=== PATIENT | female | born 1945 | race Caucasian/White ===

== ENCOUNTER 2018-02-06 11:04 | Emergency (ER) | payer MEDICARE ==
[~2018-02-06] VITALS: Ht 160 cm; Wt 100.7 kg
--- OUTSIDE RECORDS SUMMARY | 2018-02-06 11:08 | XMS REPORT ---
Author Author FLOWER HUGO Organization [facility] Address [address] [place] [address] Care Team Providers Care Supervisor Grading Name Role Phone FLOWER HUGO Unavailable PROBLEMS Type Condition ICD9-CM Code [id number] Code Onset Dates Condition Status SNOMED Code Problem Type 2 diabetes mellitus with diabetic nephropathy E11.21 Active 554968110 Problem Diabetic polyneuropathy associated with type 2 diabetes mellitus E11.42 Active 17538388 Problem Bipolar disorder in full remission, most recent episode unspecified type F31.70 Active 60985502 Problem Schizoaffective disorder, bipolar type F25.0 Active 66480012 Problem End stage renal disease N18.6 Active 125158625 Problem Essential hypertension I10 Active 47250129 Problem Chronic obstructive pulmonary disease, unspecified COPD type J44.9 Active 88554812 Problem 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.2 Active 308785137 Problem watermaster current use of insulin Z79.4 Active 003275027 ALLERGIES No Information ENCOUNTERS Encounter Location Date Diagnosis [facility] [id number] [place] [address] Jan, [facility] [address] [place] [address] 08660- 9837 Jan, [facility] [id number] [place] [address]5849- 7290 Jan, [facility] [id number] [place] [address] 11338- 5057 Dec, [facility] [id number] [place] [address] 03905- 3316 Dec, [facility] [id number] [place] [address] 66717- 0107 Dec, [facility] [address] [place] [address] Dec, [facility] [address] [address] Dec, Schizoaffective disorder, bipolar type F25.0 [facility] [address] [address] Nov, [facility] [id number] [place] [address] 96669- 2516 Nov, [facility] [address] [place] [address] 78812- 9234 Nov, Schizoaffective disorder, bipolar type F25.0 [facility] [address] [address] Nov, [facility] [address] [place] [address] Nov, Type 2 diabetes mellitus with diabetic nephropathy E11.21 ; senior living current use of insulin Z79.4 ; Essential hypertension I10 ; Chronic obstructive pulmonary disease, unspecified COPD type J44.9 ; Bipolar disorder in full remission, most recent episode unspecified type F31.70 ; Diabetic polyneuropathy associated with type 2 diabetes mellitus E11.42 ; End stage renal disease N18.6 ; 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.2 and BMI 40.0-44.9, adult Z68.41 IMMUNIZATIONS No Known Immunizations SOCIAL HISTORY Never Assessed REASON FOR VISIT Refill request PLAN OF CARE VITAL SIGNS MEDICATIONS Medication Instructions Dosage Frequency Start Date End Date Duration Status Atorvastatin Calcium 40 mg Orally Once a day 1 tablet 24h 30 days Active RESULTS No Results PROCEDURES No Known procedures INSTRUCTIONS MEDICATIONS ADMINISTERED No Known Medications MEDICAL (GENERAL) HISTORY Type Description Date Medical History chronic renal failure Medical History type II diabetes Medical History chronic obstructive pulmonary disease (COPD) Medical History hypertension Medical History thyroid disorder Surgical History hysterectomy, total with bilateral salpingo-oophorectomy (BSO ) Surgical History tonsillectomy and adenoidectomy Surgical History appendectomy Surgical History cholecystectomy Hospitalization History pneumonia 09/07 Hospitalization History pneumonia 10/04 Hospitalization History multiple psychiatric inpatient treatments, most recent 2003
--- OUTSIDE RECORDS SUMMARY | 2018-02-06 11:09 | XMS REPORT ---
Author Author SERGEY ALBARRAN Organization [facility] Address [address] [place] [address] Care Team Providers Care Blueprinting Machine Operator Name Role Phone SERGEY ALBARRAN Unavailable PROBLEMS Type Condition ICD9-CM Code [id number] Code Onset Dates Condition Status SNOMED Code Problem Type 2 diabetes mellitus with diabetic nephropathy E11.21 Active 900092131 Problem Diabetic polyneuropathy associated with type 2 diabetes mellitus E11.42 Active 17587436 Problem Bipolar disorder in full remission, most recent episode unspecified type F31.70 Active 70480835 Problem Schizoaffective disorder, bipolar type F25.0 Active 60946208 Problem End stage renal disease N18.6 Active 409957708 Problem Essential hypertension I10 Active 83947303 Problem Chronic obstructive pulmonary disease, unspecified COPD type J44.9 Active 80661776 Problem 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.2 Active 293986166 Problem senior living current use of insulin Z79.4 Active 634848756 ALLERGIES No Information ENCOUNTERS Encounter Location Date Diagnosis [facility] [address] [address] Jan, [facility] [address] [address] Jan, [facility] [address] [place] [address] 42962- 7107 Jan, [facility] [address] [place] [address] 37448- 9216 Dec, [facility] [id number] [place] [address] 95131- 4618 Dec, [facility] [address] [place] [address] 02649- 5372 Dec, [facility] [id number] [address] 6[address] Dec, [facility] [address] [address] Dec, Schizoaffective disorder, bipolar type F25.0 [facility] [address] [address] 6[address] Nov, [facility] [id number] [address] 14[address] Nov, [facility] [address] [address] Nov, Schizoaffective disorder, bipolar type F25.0 [place] [address] Nov, [facility] [address] [address] Nov, Type 2 diabetes mellitus with diabetic [...] SOCIAL HISTORY Never Assessed REASON FOR VISIT intake PLAN OF CARE VITAL SIGNS MEDICATIONS Medication Instructions Dosage Frequency Start Date End Date Duration Status Metoprolol Tartrate 25 MG Orally Once a day 1 tablet with food 24h Active Magnesium Oxide 400 MG Orally Once a day 1 capsule as needed 24h Active Escitalopram Oxalate 20 MG Orally Once a day 0.5 tablet 24h Active Promethazine HCl 25 MG Orally every 8 hours, PRN 1 tablet as needed Active Calcitriol 0.5 MCG Orally Once a day 1 capsule 24h Active Renvela 800 MG Orally Three times a day 1 tablet with meals 8h Active Epogen 38462 UNIT/ML Injection every other week Active Hydrocodone-Acetaminophen 10-325 MG Orally every 8-12 hours, PRN 1 tablet as needed Nov, Active Gabapentin 300 MG Orally twice a day 1 capsule 12h Active Sodium Bicarbonate 650 MG Orally 2 times a day 12h Active B Complex - Active Amlodipine Besylate 10 MG Orally Once a day 1 tablet 24h Active Furosemide 40 mg Orally twice a day 1 tablet 12h Active Levothyroxine Sodium 125 MCG Orally Once a day 1 tablet on an empty stomach in the morning 24h Active Olanzapine 7.5 MG Orally Once a day 1 tablet 24h Active Bath/Shower Seat - as directed 13 Nov, 2017 Active Atorvastatin Calcium 40 MG Orally Once a day 1 tablet 24h Active Fish Oil 1000 MG Orally twice a day 2 capsule 12h Active RESULTS No Results PROCEDURES Procedure Date Ordered Result Body Site Psych diagnostic evaluation, established patient December 05, 2017 INSTRUCTIONS MEDICATIONS ADMINISTERED No Known Medications MEDICAL [...]
--- OUTSIDE RECORDS SUMMARY | 2018-02-06 11:09 | XMS REPORT ---
Author Author FLOWER HUGO Organization [facility] Address [address] [place] [address] Care Team Providers Care Hospice Home Care Coordinator Name Role Phone FLOWER HUGO Unavailable PROBLEMS Type Condition ICD9-CM Code [id number] Code Onset Dates Condition Status SNOMED Code Problem Type 2 diabetes mellitus with diabetic nephropathy E11.21 Active 769494383 Problem Diabetic polyneuropathy associated with type 2 diabetes mellitus E11.42 Active 12623501 Problem Bipolar disorder in full remission, most recent episode unspecified type F31.70 Active 23784134 Problem Schizoaffective disorder, bipolar type F25.0 Active 31742633 Problem End stage renal disease N18.6 Active 648389753 Problem Essential hypertension I10 Active 69212178 Problem Chronic obstructive pulmonary disease, unspecified COPD type J44.9 Active 69363404 Problem 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.2 Active 913007297 Problem watermaster current use of insulin Z79.4 Active 849690282 ALLERGIES No Information ENCOUNTERS Encounter Location Date Diagnosis [facility] [address] [place] [address]61- [address] Jan, [facility] [address] [place] [address] 08142- 5721 Jan, [facility] [id number] [place] [address] 50933- 4754 Dec, [facility] [id number] [place] [address] 69211- 3257 Dec, [facility] [id number] [place] [address] 09081- 3806 Dec, [facility] [id number] [place] [address] 87758- 4925 Dec, [facility] [address] [place] [address]- 47[address] Dec, Schizoaffective disorder, bipolar type F25.0 [facility] [id number] [address]- 4[address] Nov, [facility] [address] [place] [address]- [address] Nov, [facility] [address] [place] [address]- 98[address] Nov, Schizoaffective disorder, bipolar type F25.0 [facility] [address] [address] Nov, [facility] [address] [address]- 2774 Nov, Type 2 diabetes mellitus with diabetic nephropathy E11.21 ; residential current use of insulin Z79.4 ; Essential [...] SOCIAL HISTORY Never Assessed REASON FOR VISIT PLAN OF CARE VITAL SIGNS MEDICATIONS Medication Instructions Dosage Frequency Start Date End Date Duration Status Levothyroxine Sodium 125 mcg Orally Once a day 1 tablet on an empty stomach in the morning 24h Active RESULTS No Results PROCEDURES No Known [...]
--- OUTSIDE RECORDS SUMMARY | 2018-02-06 11:09 | XMS REPORT ---
Author Author FLOWER HUGO [facility] Address [address] [place] [address] Care Team Providers Care Mounter Sousaphones Name Role Phone FLOWER HUGO Unavailable PROBLEMS Type Condition ICD9-CM Code [id number] Code Onset Dates Condition Status SNOMED Code Problem Type 2 diabetes mellitus with diabetic nephropathy E11.21 Active 845887578 Problem Diabetic polyneuropathy associated with type 2 diabetes mellitus E11.42 Active 34779803 Problem Bipolar disorder in full remission, most recent episode unspecified type F31.70 Active 00680543 Problem Schizoaffective disorder, bipolar type F25.0 Active 56711323 Problem End stage renal disease N18.6 Active 243311797 Problem Essential hypertension I10 Active 67059045 Problem Chronic obstructive pulmonary disease, unspecified COPD type J44.9 Active 12787259 Problem 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.2 Active 593314468 Problem oil heaterman current use of insulin Z79.4 Active 704505318 ALLERGIES Substance Reaction Event Type Date Status [place] catatonic Drug Allergy Nov, Active Abilify diarrhea Drug Allergy Nov, Active ENCOUNTERS Encounter Location Date Diagnosis [facility] [id number] [address] Jan, [facility] [address] [address] 2537 Jan, [facility] [address] [address]- 1789 Jan, [facility] [address] [place] [address]35- 7206 Dec, [facility] [address] [address]- 8230 Dec, [facility] [id number] [place] [address] 10870- 9133 Dec, [facility] [address] [address]- 7881 Dec, [facility] [address] [address]- 9154 Dec, Schizoaffective disorder, bipolar type F25.0 [facility] [address] [address]- 6777 Nov, [facility] [address] [address]- 0397 Nov, [facility] [address] [address]- 6058 Nov, Schizoaffective disorder, bipolar type F25.0 [facility] [address] [address]- 18[address] Nov, [facility] [address] [address]- 2487 Nov, Type 2 diabetes mellitus with diabetic nephropathy E11.21 ; detention current use of insulin Z79.4 ; Essential [...] SOCIAL HISTORY Never Assessed REASON FOR VISIT Establish Care, recently moved from [place], dialysis, see ice sculptor, Dr. Gonzalez PLAN OF CARE Activity Details Follow Up 3 Months Reason: VITAL SIGNS Height 64 in 2017-12-02 Weight 236 lbs 2017-12-02 Temperature 98.1 degrees Fahrenheit 2017-12-02 Heart Rate 60 bpm 2017-12-02 Respiratory Rate 20 2017-12-02 BMI 40.50 kg/m2 2017-12-02 Blood pressure systolic 86 mmHg 2017-12-02 Blood pressure diastolic 52 mmHg 2017-12-02 MEDICATIONS Medication Instructions Dosage Frequency Start Date End Date Duration Status Epogen 86385 UNIT/ML Injection every other week Active Levothyroxine Sodium 125 MCG Orally Once a day 1 tablet on an empty stomach in the morning 24h Active Bath/Shower Seat - as directed Nov, Active Magnesium Oxide 400 MG Orally Once a day 1 capsule as needed 24h Active B Complex - Active Amlodipine Besylate 10 MG Orally Once a day 1 tablet 24h Active Escitalopram Oxalate 20 MG Orally Once a day 0.5 tablet 24h Active Metoprolol Tartrate 25 MG Orally Once a day 1 tablet with food 24h Active Olanzapine 7.5 MG Orally Once a day 1 tablet 24h Active Furosemide 40 mg Orally twice a day 1 tablet 12h Active Atorvastatin Calcium 40 MG Orally Once a day 1 tablet 24h Active Renvela 800 MG Orally Three times a day 1 tablet with meals 8h Active Calcitriol 0.5 MCG Orally Once a day 1 capsule 24h Active Hydrocodone-Acetaminophen 10-325 MG Orally every 8-12 hours, PRN 1 tablet as needed Nov, Active Sodium Bicarbonate 650 MG Orally 2 times a day 12h Active Fish Oil 1000 MG Orally twice a day 2 capsule 12h Active Promethazine HCl 25 MG Orally every 8 hours, PRN 1 tablet as needed Active Gabapentin 300 MG Orally twice a day 1 capsule 12h Active Adjust Bath/Shower Seat/Back - use while showering Nov, Active RESULTS No Results PROCEDURES No Known [...]
--- OUTSIDE RECORDS SUMMARY | 2018-02-06 11:09 | XMS REPORT ---
Author Author FLOWER HUGO Organization [facility] Address [address] [place] [address] Care Team Providers Care Grainer Machine Name Role Phone FLOWER HUGO Unavailable PROBLEMS Type Condition ICD9-CM Code [id number] Code Onset Dates Condition Status SNOMED Code Problem Type 2 diabetes mellitus with diabetic nephropathy E11.21 Active 502035485 Problem Diabetic polyneuropathy associated with type 2 diabetes mellitus E11.42 Active 71546251 Problem Bipolar disorder in full remission, most recent episode unspecified type F31.70 Active 15687968 Problem Schizoaffective disorder, bipolar type F25.0 Active 57439760 Problem End stage renal disease N18.6 Active 809442524 Problem Essential hypertension I10 Active 64742998 Problem Chronic obstructive pulmonary disease, unspecified COPD type J44.9 Active 32149495 Problem 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.2 Active 649409810 Problem buttermaker continuous churn current use of insulin Z79.4 Active 410948446 ALLERGIES No Information ENCOUNTERS Encounter Location Date Diagnosis [facility] [address] [place] [address]39[address]- 6749 Jan, [facility] [address] [place] [address] 90066- 4217 Jan, [facility] [id number] [place] [address] 55602- 3998 Dec, [facility] [id number] [place] [address] 40128- 7582 Dec, [facility] [id number] [place] [address] 97406- 8299 Dec, [facility] [id number] [place] [address] 72178- 5230 Dec, [facility] [address] [place] [address]- 65[address] Dec, Schizoaffective disorder, bipolar type F25.0 [facility] [id number] [address]- [address] Nov, [facility] [address] [address]- 85[address] Nov, [facility] [address] [address]- 47[address] Nov, Schizoaffective disorder, bipolar type F25.0 [facility] [address] [address]- 2734 Nov, [facility] [address] [address]- 5[address] Nov, Type 2 diabetes mellitus with diabetic nephropathy E11.21 ; nursing home current use of insulin Z79.4 ; Essential [...] request PLAN OF CARE VITAL SIGNS MEDICATIONS Unknown Medications RESULTS No Results PROCEDURES No Known procedures [...]
--- NOTE | 2018-02-06 12:16 | ED General ---
General Stated Complaint: TROUBLE STAYING AWAKE;SHAKING Source of Information: Patient Exam Limitations: No Limitations History of Present Illness Date Seen by Provider: Feb 06, 2018 Time Seen by Provider: 12:14 Initial Comments To ER with reports of 3-4 days of lethargy. She reports trouble staying awake and nodding off to sleep unintentionally. She is a peritoneal dialysis patient who follows with nephrology at [facility] [place] here in [place]. Primary care is Dr. Nobles. She was told earlier today that her calcium level was high at 12 and this was the suspected cause of her lethargy. She also states that she's had some "heartburn" described as pressure in the center of her chest (no history of coronary stenting) constant for the past 3-4 days and somewhat alleviated by taking comes. She was advised to quit taking Tums at her nephrology appointment this morning. She states that she does produce some urine but minimal. Timing/Duration: 3-4 Days Severity: Moderate Allergies and Home Medications Allergies Coded Allergies: lithium (Verified Allergy, Unknown, 02/06/18) Patient Home Medication List Home Medication List Reviewed: Yes Review of Systems Review of Systems Constitutional: see HPI EENTM: see HPI Respiratory: see HPI Genitourinary: no symptoms reported Musculoskeletal: no symptoms reported Skin: no symptoms reported Psychiatric/Neurological: See HPI, Weakness Hematologic/Lymphatic: No Symptoms Reported Immunological/Allergic: no symptoms reported Physical Exam Vital Signs Vital Signs - First Documented 02/06/18 12:07 Temp 98.0 Pulse 99 Resp 28 B/P (MAP) 111/58 (75) Pulse Ox 97 O2 Delivery Room Air Capillary Refill : Height, Weight, BMI Height: '" Weight: lbs. oz. kg; BMI Method: General Appearance: No Apparent Distress, WD/WN, Obese Eyes: Bilateral Eye Normal Inspection, Bilateral Eye PERRL, Bilateral Eye EOMI HEENT: PERRL/EOMI, TMs Normal Neck: Full Range of Motion, Normal Inspection Respiratory: No Accessory Muscle Use, No Respiratory Distress Cardiovascular: Regular Rate, Rhythm, Normal Peripheral Pulses Gastrointestinal: Normal Bowel Sounds, Non Tender, Soft Extremity: Normal Capillary Refill, Normal Inspection Neurologic/Psychiatric: Alert, Oriented x3, No Motor/Sensory Deficits Skin: Normal Color, Warm/Dry Progress/Results/Core Measures Suspected Sepsis SIRS Temperature: Pulse: Respiratory Rate: Laboratory Tests 02/06/18 12:10: White Blood Count 9.0 Blood Pressure / Mean: Laboratory Tests 02/06/18 12:10: Creatinine 13.54H, Platelet Count 220, Total Bilirubin 0.6 Results/Orders Lab Results My Orders Vital Signs/I&O Capillary Refill : Diagnostic Imaging Diagonstic Imaging: Xray Plain Films/CT/US/NM/MRI: chest Comments NAME: AARON FULLER [facility] REC#: [id number] PT STATUS: REG ER : 1945 PHYSICIAN: ALEXA DUMAS INFORMATICA MDM ARCHITECT ADMIT DATE: 02/06/18/ER Draft Date of Exam:02/06/18 CHEST 1 VIEW, AP/PA ONLY PATIENT HISTORY: Shortness of breath and difficulty staying awake. TECHNIQUE: Single frontal view of the chest. COMPARISON: None. FINDINGS: Lung volumes are normal. No focal consolidation is seen. There is no pleural effusion or pneumothorax. The cardiac silhouette is upper normal in size. There is mild central vascular congestion. Accessory azygos fissure is noted. IMPRESSION: Mild central vascular congestion with no focal consolidation seen. Dictated on workstation # [id number] Dict: 02/06/18 1305 Trans: 02/06/18 1308 [id number] Interpreted by: CHARLES WOODY MD Electronically signed by: Departure Communication (Admissions) Spoke with Dr. Jaswinder Gonzalez's nurse. She spoke with him about the labs. Does not feel that she needs admitted. I would agree with this, she is lethargic but she is arousable to verbal stimuli and able to carry on a conversation with me. She should stop vitamin D, no calcium products, push fluids and she will see him at the dialysis clinic on Tuesday 2 days from now. Impression Primary Impression: Lethargy Additional Impressions: Hypercalcemia Hypercalcemia associated with chronic dialysis Disposition: HOME, SELF-CARE Condition: Stable Departure-Patient Inst. Decision time for Depature: 14:09 Patient Instructions: Hypercalcemia (DC) Add. Discharge Instructions: 1. Return to ER for any concerns 2. Follow-up with Dr. Gonzalez on Tuesday of this week. Stop the vitamin D, no calcium products, drink plenty of fluids, more than usual and return to ER for any concerns. ALEXA DUMAS INFORMATICA MDM ARCHITECT Feb 06, 2018 12:16
[2018-02-06 12:32] LABS: BASOPHILS % (AUTO) 0 % (0-10); EOSINOPHILS # (AUTO) 0.4 10^3/uL (0.0-0.3); EOSINOPHILS % (AUTO) 4 % (0-10); HEMATOCRIT 30 % (35-52); HEMOGLOBIN 9.8 G/DL (11.5-16.0); LYMPHOCYTES # (AUTO) 2.2 X 10^3 (1.0-4.0); LYMPHOCYTES % (AUTO) 24 % (12-44); MEAN CORPUSCULAR HEMOGLOBIN 35 PG (25-34); MEAN CORPUSCULAR HGB CONC 33 G/DL (32-36); MEAN CORPUSCULAR VOLUME 107 FL (80-99); MEAN PLATELET VOLUME 8.7 FL (7.4-10.4); MONOCYTES # (AUTO) 0.7 X 10^3 (0.0-1.0); MONOCYTES % (AUTO) 8 % (0-12); NEUTROPHILS # (AUTO) 5.7 X 10^3 (1.8-7.8); NEUTROPHILS % (AUTO) 63 % (42-75); PLATELET COUNT 220 10^3/uL (130-400); RED BLOOD COUNT 2.77 10^6/uL (4.35-5.85); RED CELL DISTRIBUTION WIDTH 15.6 % (10.0-14.5)
[2018-02-06 12:53] LABS: ALANINE AMINOTRANSFERASE 18 U/L (0-55); ALBUMIN 3.4 GM/DL (3.2-4.5); ALKALINE PHOSPHATASE 56 U/L (40-136); BILIRUBIN,TOTAL 0.6 MG/DL (0.1-1.0); BUN/CREATININE RATIO 4; CALCIUM 12.1 MG/DL (8.5-10.1); CARBON DIOXIDE 30 MMOL/L (21-32); CHLORIDE 96 MMOL/L (98-107); CREATININE SERUM 13.54 MG/DL (0.60-1.30); GFR ESTIMATED 3; GLUCOSE 200 MG/DL (70-105); PHOSPHORUS 5.9 MG/DL (2.3-4.7); POTASSIUM 3.9 MMOL/L (3.6-5.0); SODIUM 141 MMOL/L (135-145)
[2018-02-06] MEDS ORDERED: NS IV 500 ML 500 ML IV SCH (13:00)
[2018-02-06] MEDS ORDERED: CALCITONIN 400 IUNITS/2 ML INJ (MIACALCIN) VIAL IM SCH (13:00)
--- NOTE | 2018-02-06 13:08 | Diagnostic Imaging Report ---
PATIENT HISTORY: Shortness of breath and difficulty staying awake. TECHNIQUE: Single frontal view of the chest. COMPARISON: None. FINDINGS: Lung volumes are normal. No focal consolidation is seen. There is no pleural effusion or pneumothorax. The cardiac silhouette is upper normal in size. There is mild central vascular congestion. Accessory azygos fissure is noted. IMPRESSION: Mild central vascular congestion with no focal consolidation seen. Dictated by: Dictated on workstation # [id number]
[2018-02-06 13:14] LABS: FREE T4 (FREE THYROXINE) 1.16 NG/DL (0.70-1.48)
[2018-02-06 14:20] VITALS: BP 119/59
== END 2018-02-06 14:20 | disposition home or self-care (01) ==
LOC: ER 11:05
DX: R53.83 Other fatigue (principal); E83.52 Hypercalcemia; N18.6 End stage renal disease; Z99.2 Dependence on renal dialysis; Z88.8 Allergy status to other drugs, medicaments and biological substances
CPT/HCPCS: 36415; 71045; 80053; 84100; 84439; 84443; 84484; 85025; 93005; 96360

== ENCOUNTER 2018-03-23 10:21 | Emergency (ER) | payer MEDICARE ==
[~2018-03-23] VITALS: Ht 162.6 cm; Wt 90.7 kg
--- OUTSIDE RECORDS SUMMARY | 2018-03-23 10:27 | XMS REPORT ---
Author Author MICHAEL OSBORN Organization [facility] Address [address] [place] [address] Care Team Providers Care Livestock Rancher Name Role Phone MICHAEL OSBORN Unavailable PROBLEMS Type Condition ICD9-CM Code [id number] Code Onset Dates Condition Status SNOMED Code Problem Bipolar disorder in full remission, most recent episode unspecified type F31.70 Active 90010935 Problem Chronic obstructive pulmonary disease, unspecified COPD type J44.9 Active 23764421 Problem Diabetic polyneuropathy associated with type 2 diabetes mellitus E11.42 Active 81598543 Problem Type 2 diabetes mellitus with diabetic nephropathy E11.21 Active 849627531 Problem 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.8X3 Active 562894628 Problem Schizoaffective disorder, bipolar type F25.0 Active 24137176 Problem senior care current use of insulin Z79.4 Active 655099268 Problem Essential hypertension I10 Active 14566319 Problem End stage renal disease N18.6 Active 879785800 Problem 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.2 Active 162060704 ALLERGIES No Information ENCOUNTERS Encounter Location Date Diagnosis [place] [id number] [place] [address] 39620- 7293 May, [facility] [id number] [place] [address] 71133- 7978 Feb, [facility] [id number] [place] [address] 04804- 3039 Jan, Schizoaffective disorder, bipolar type F25.0 [facility] [address] [place] [address] 61805- 9496 Jan, Type 2 diabetes mellitus with diabetic nephropathy E11.21 [facility] [address], [place] [address] 9[address] Jan, 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.8X3 [facility] [address] [place] [address] 47070- 9197 Jan, End stage renal disease N18.6 ; Chronic obstructive pulmonary disease, unspecified COPD type J44.9 ; 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.8X3 and Type 2 diabetes mellitus with diabetic nephropathy E11.21 [facility] [id number] [place] [address] 22649- 8022 17 Jan, 2018 [facility] [id number] [place] [address] 47673- 5703 Jan, [facility] [id number] [place] [address] 60395- 0090 Jan, [facility] [id number] [place] [address] 18041- 7532 Jan, [facility] [id number] [place] [address] 75101- 9376 Dec, [facility] [id number] [place] [address] 53190- 9849 Dec, [facility] [id number] [place] [address] 34213- 9156 Dec, [facility] [id number] [place] [address] 99357- 9026 Dec, [facility] [id number] [place] [address] 10721- 3988 Dec, Schizoaffective disorder, bipolar type F25.0 [facility] [address], [place] [address] 99[address] Nov, [facility] [id number] [place] [address] 84628- 1892 Nov, [facility] [address], [place] [address] 2235 Nov, Schizoaffective disorder, bipolar type F25.0 [facility] [address] [facility] [id number] [address] 0[address] Nov, [facility] [address] [facility] [id number] [address] 270[address] Nov, Type 2 diabetes mellitus with diabetic nephropathy E11.21 ; senior care current use of insulin Z79.4 ; Essential [...] SOCIAL HISTORY Never Assessed REASON FOR VISIT f/u PLAN OF CARE Activity Details Follow Up 4 Months Reason: VITAL SIGNS MEDICATIONS Medication Instructions Dosage Frequency Start Date End Date Duration Status Levothyroxine Sodium 125 mcg Orally Once a day 1 tablet on an empty stomach in the morning 24h Active Renvela 800 MG Orally Three times a day 3 tablet with meals 8h Feb, 30 days Active Gabapentin 300 MG Orally twice a day 1 capsule 12h 90 days Active Adjust Bath/Shower Seat/Back - use while showering Nov, Active Olanzapine 7.5 MG Orally at night 1 tablet 30 days Active Magnesium Oxide 400 MG Orally Once a day 1 capsule as needed 24h Active Escitalopram Oxalate 20 MG Orally Once a day 1 tablet 24h 30 days Active Furosemide 20 MG Orally twice a day 1 tablet 12h Active Sodium Bicarbonate 325 MG as directed Active Atorvastatin Calcium 40 mg Orally Once a day 1 tablet 24h 30 days Active Fish Oil 1000 MG Orally twice a day 2 capsule 12h Active B Complex - Active Hydrocodone-Acetaminophen 10-325 MG Orally every 8-12 hours, PRN 1 tablet as needed Nov, Active Bath/Shower Seat - as directed Nov, Active BD Ultra-Fine Micro Pen Needle 32G X 6 MM 1 24h Jan, Active Epogen 29041 UNIT/ML Injection every other week Active Promethazine HCl 25 MG Orally every 8 hours, PRN 1 tablet as needed Active RESULTS No Results PROCEDURES Procedure Date Ordered Result Body Site [facility] VISIT ESTABLISHED PATIENT Feb 16, 2018 INSTRUCTIONS MEDICATIONS ADMINISTERED No Known Medications MEDICAL [...]
--- OUTSIDE RECORDS SUMMARY | 2018-03-23 10:27 | XMS REPORT ---
Author Author FLOWER HUGO Organization [facility] Address [address] [place] [address] Care Team Providers Care Tank Builder Supervisor Name Role Phone FLOWER HUGO Unavailable PROBLEMS Type Condition ICD9-CM Code [id number] Code Onset Dates Condition Status SNOMED Code Problem Diabetic polyneuropathy associated with type 2 diabetes mellitus E11.42 Active 66062405 Problem Essential hypertension I10 Active 63377854 Problem Chronic obstructive pulmonary disease, unspecified COPD type J44.9 Active 40023658 Problem Bipolar disorder in full remission, most recent episode unspecified type F31.70 Active 10344783 Problem Type 2 diabetes mellitus with diabetic nephropathy E11.21 Active 267165743 Problem COPD with acute exacerbation J44.1 Active 870866589 Problem 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.8X3 Active 259842749 Problem 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.2 Active 149635090 Problem [facility] current use of insulin Z79.4 Active 039629910 Problem Schizoaffective disorder, bipolar type F25.0 Active 75303221 Problem End stage renal disease N18.6 Active 173886487 ALLERGIES No Information ENCOUNTERS Encounter Location Date Diagnosis [facility] [address], [place] [address] 78[address] May, [facility] [address] [place] [address] 63073- 8052 Feb, [facility] [address], [place] [address] Feb, Disseminated herpes zoster B02.7 [facility] [address] [place] [address] 38317- 3287 Feb, [facility] [address], [place] [address]- 0059 Feb, COPD with acute exacerbation J44.1 [facility] [address] [address]- 9590 Feb, [facility] [id number] [place] [address] 33477- 5726 Feb, [facility] [id number] [place] [address] 97880- 7080 Jan, Schizoaffective disorder, bipolar type F25.0 [facility] [id number] [place] [address] 17665- 4824 Jan, Type 2 diabetes mellitus with diabetic nephropathy E11.21 [facility] [id number] [place] [address] 60101- 7974 Jan, 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.8X3 [facility] [id number] [place] [address] 85575- 2139 Jan, End stage renal disease N18.6 ; Chronic obstructive pulmonary disease, unspecified COPD type J44.9 ; 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.8X3 and Type 2 diabetes mellitus with diabetic nephropathy E11.21 [facility] [id number] [place] [address] 35814- 1272 Jan, [facility] [address] [place] [address] 02783- 1005 Jan, [facility] [id number] [place] [address] 61903- 2396 Jan, [facility] [id number] [place] [address] 98638- 0894 Jan, [facility] [id number] [place] [address] 20097- 9881 Dec, [facility] [id number] [place] [address] 54176- 4912 Dec, [facility] [address] [place] [address] 44024- 6789 Dec, [facility] [id number], [place] [address]- 1687 Dec, [facility] [address] [address]- 9620 Dec, Schizoaffective disorder, bipolar type F25.0 [facility] [address], [place] [address] Nov, [facility] [address], [place] [address]- 3701 Nov, [facility] [address], [place] [address]- 1643 Nov, Schizoaffective disorder, bipolar type F25.0 [facility] [address], [place] [address]- 0938 Nov, [place] [address], [place] [address]- 2272 Nov, Type 2 diabetes mellitus with diabetic nephropathy E11.21 ; [facility] current use of insulin Z79.4 ; Essential [...] SOCIAL HISTORY Never Assessed REASON FOR VISIT oxygen orders PLAN OF CARE VITAL SIGNS MEDICATIONS Medication Instructions Dosage Frequency Start Date End Date Duration Status Oxygen 2 L/NC as directed Feb, Active RESULTS No Results PROCEDURES No Known [...]
--- OUTSIDE RECORDS SUMMARY | 2018-03-23 10:27 | XMS REPORT ---
Author Author ELIOT PATTERSON Organization [facility] Address [address] [place] [address] Care Team Providers Care Economics Professor Name Role Phone ELIOT PATTERSON Unavailable PROBLEMS Type Condition ICD9-CM Code [id number] Code Onset Dates Condition Status SNOMED Code Problem Diabetic polyneuropathy associated with type 2 diabetes mellitus E11.42 Active 65713789 Problem Essential hypertension I10 Active 55013207 Problem Chronic obstructive pulmonary disease, unspecified COPD type J44.9 Active 42011502 Problem Bipolar disorder in full remission, most recent episode unspecified type F31.70 Active 53771714 Problem Type 2 diabetes mellitus with diabetic nephropathy E11.21 Active 657684022 Problem COPD with acute exacerbation J44.1 Active 479792850 Problem 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.8X3 Active 342992297 Problem 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.2 Active 390787347 Problem 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.4 Active 260188334 Problem Schizoaffective disorder, bipolar type F25.0 Active 34697927 Problem End stage renal disease N18.6 Active 821066604 ALLERGIES Substance Reaction Event Type Date Status [place] catatonic Drug Allergy Feb, Active Abilify diarrhea Drug Allergy Feb, Active ENCOUNTERS Encounter Location Date Diagnosis [facility] [id number], [place] [address] 4071 May, [facility] [address], [place] [address]- 5180 Feb, [facility] [address], [place] [address] Feb, Disseminated herpes zoster B02.7 [facility] [address], [place] [address]- 5479 Feb, [facility] [id number] [place] [address] 90427- 4472 Feb, COPD with acute exacerbation J44.1 [facility] [id number] [place] [address] 21292- 2387 Feb, [facility] [id number] [place] [address] 02869- 5808 Feb, [facility] [id number] [place] [address] 75429- 1273 Jan, Schizoaffective disorder, bipolar type F25.0 [facility] [address] [place] [id number] [place] [address] 75419- 1965 Jan, Type 2 diabetes mellitus with diabetic nephropathy E11.21 [facility] [address] [id number] [place] [address] 47442- 3084 Jan, 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.8X3 [facility] [address] [place] [id number] [place] [address] 89269- 8829 Jan, End stage renal disease N18.6 ; Chronic obstructive pulmonary disease, unspecified COPD type J44.9 ; 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.8X3 and Type 2 diabetes mellitus with diabetic nephropathy E11.21 [facility] [address] [place] [address] 94111- 6100 17 Jan, 2018 [facility] [id number] [place] [address] 71121- 0243 Jan, [facility] [id number] [place] [address] 78487- 6837 Jan, [facility] [address] [id number] [place] [address] 17925- 2287 Jan, [facility] [address] [id number] [place] [address] 27601- 7183 Dec, [facility] [id number] [place] [address] 11647- 7019 Dec, [place] [address], [place] [address]- 1243 Dec, [facility] [address], [place] [address]- 6092 Dec, [facility] [address], [place] [address]- 0156 Dec, Schizoaffective disorder, bipolar type F25.0 [facility] [address], [place] [address]- 7918 Nov, [facility] [address], [place] [address]- 1388 Nov, [facility] [address], [place] [address]- 5640 Nov, Schizoaffective disorder, bipolar type F25.0 [place] [address], [place] [address]- 9028 Nov, [facility] [address], [place] [address]- 2826 Nov, Type 2 diabetes mellitus with diabetic nephropathy E11.21 ; [facility] current use of insulin Z79.4 ; Essential [...] SOCIAL HISTORY Never Assessed REASON FOR VISIT Blisters on neck Pt seen Miroslava Davis on was given prednisone and doxycylene. She started both meds on Tuesday, developed blisters on neck on Tuesday and stopped taking the medications yesterday (Tuesday) Pt reports rash does not itch, she describes it as burning and painful, with blisters DELMI Benjamin PLAN OF CARE Activity Details Follow Up prn Reason: VITAL SIGNS Height 64 in 2018-03-20 Weight 225.2 lbs 2018-03-20 Temperature 98.6 degrees Fahrenheit 2018-03-20 Heart Rate 78 bpm 2018-03-20 Respiratory Rate 18 2018-03-20 Oximetry on room air:93 % 2018-03-20 BMI 38.65 kg/m2 2018-03-20 Blood pressure systolic 124 mmHg 2018-03-20 Blood pressure diastolic 66 mmHg 2018-03-20 MEDICATIONS Medication Instructions Dosage Frequency Start Date End Date Duration Status Furosemide 80 MG Orally Once a day 1 tablet 24h Active Magnesium Oxide 400 MG Orally Once a day 1 capsule as needed 24h Active Levothyroxine Sodium 125 mcg Orally Once a day 1 tablet on an empty stomach in the morning 24h 30 Active Gabapentin 300 MG Orally twice a day 1 capsule 12h 90 days Active ProAir HFA 108 (90 Base) MCG/ACT Inhalation every 6 hrs 2 puffs as needed 6h Feb, 30 days Active Hydrocodone-Acetaminophen 10-325 MG Orally every 8-12 hours, PRN 1 tablet as needed Nov, Active BD Ultra-Fine Micro Pen Needle 32G X 6 MM 1 24h Jan, Active Escitalopram Oxalate 20 MG Orally Once a day 1 tablet 24h 30 days Active Fish Oil 1000 MG Orally twice a day 2 capsule 12h Active Lidocaine HCl 5 % Externally 2-3 times a day Topically Feb, 10 days Active PredniSONE 20 mg Orally Once a day 2 tablet 24h Feb, Feb, 5 days Not-Taking Acyclovir 800 MG Orally 5 times per day 1 tablet Feb, 10 day( s) Active Olanzapine 7.5 MG Orally at night 1 tablet 30 Active Sodium Bicarbonate 325 MG as directed Active Atorvastatin Calcium 40 mg Orally Once a day 1 tablet 24h 30 days Active Epogen 32738 UNIT/ML Injection every week Active Levemir Flexpen 100 UNIT/ML Subcutaneous at bedtime inject 32 units Feb, Active Adjust Bath/Shower Seat/Back - use while showering Nov, Active Bath/Shower Seat - as directed Nov, Active Renvela 800 MG Orally Three times a day 3 tablet with meals 8h 30 Active B Complex - Active Promethazine HCl 25 MG Orally every 8 hours, PRN 1 tablet as needed Active Doxycycline Hyclate 100 mg Orally twice a day 1 capsule 12h Feb, Mar, 10 day(s) Not-Taking Prilosec OTC 20 MG Orally Once a day 1 tablet 24h 30 day(s) Active RESULTS No Results PROCEDURES Procedure Date Ordered Result Body Site [facility] VISIT ESTABLISHED PATIENT Mar 20, 2018 INSTRUCTIONS MEDICATIONS ADMINISTERED No Known Medications [...]
--- OUTSIDE RECORDS SUMMARY | 2018-03-23 10:27 | XMS REPORT ---
Author Author FLOWER HUGO Organization [facility] Address [address] [place] [address] Care Team Providers Care Firer Electric Locomotive Name Role Phone FLOWER HUGO Unavailable PROBLEMS Type Condition ICD9-CM Code [id number] Code Onset Dates Condition Status SNOMED Code Problem Diabetic polyneuropathy associated with type 2 diabetes mellitus E11.42 Active 37994332 Problem Essential hypertension I10 Active 31298991 Problem Chronic obstructive pulmonary disease, unspecified COPD type J44.9 Active 47848812 Problem Bipolar disorder in full remission, most recent episode unspecified type F31.70 Active 61892949 Problem Type 2 diabetes mellitus with diabetic nephropathy E11.21 Active 493415145 Problem COPD with acute exacerbation J44.1 Active 611267542 Problem 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.8X3 Active 673182952 Problem 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.2 Active 034548069 Problem group home current use of insulin Z79.4 Active 200468938 Problem Schizoaffective disorder, bipolar type F25.0 Active 85369050 Problem End stage renal disease N18.6 Active 092120826 ALLERGIES No Information ENCOUNTERS Encounter Location Date Diagnosis [facility] [id number], [place] [address]- [address] May, [facility] [address] [place] [address] 05696- 6781 Feb, COPD with acute exacerbation J44.1 [facility] [address], [place] [address]- 9152 Feb, [facility] [id number] [place] [address] 04838- 7531 Feb, [facility] [address], [place] [address]- 8819 Jan, Schizoaffective disorder, bipolar type F25.0 [facility] [address] [place] [address] 60487- 7627 26 Jan, 2018 Type 2 diabetes mellitus with diabetic nephropathy E11.21 [facility] [id number] [place] [address] 02539- 2379 Jan, 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.8X3 [facility] [id number] [place] [address] 92347- 0884 Jan, End stage renal disease N18.6 ; Chronic obstructive pulmonary disease, unspecified COPD type J44.9 ; 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.8X3 and Type 2 diabetes mellitus with diabetic nephropathy E11.21 [facility] [id number] [place] [address] 11430- 3250 17 Jan, 2018 [facility] [id number] [place] [address] 57630- 3989 Jan, [facility] [id number] [place] [address] 80502- 4526 Jan, [facility] [id number] [place] [address] 56028- 9314 Jan, [facility] [id number] [place] [address] 36259- 5841 Dec, [facility] [id number] [place] [address] 66857- 7919 Dec, [facility] [id number] [place] [address] 76869- 1318 Dec, [facility] [id number] [place] [address] 23337- 9879 Dec, [facility] [id number] [place] [address] 14051- 7288 Dec, Schizoaffective disorder, bipolar type F25.0 [facility] [id number] [place] [address] 18276- 7449 Nov, [facility] [address] [facility] [id number] [address]- 5248 Nov, [facility] [address] [facility] [id number] [address]- 8150 Nov, Schizoaffective disorder, bipolar type F25.0 [facility] [address] [facility] [id number] [address]- 5066 Nov, [facility] [address] [facility] [id number] [address]- 9611 Nov, Type 2 diabetes mellitus with diabetic nephropathy E11.21 ; manager intermediate current use of insulin Z79.4 ; Essential [...] SOCIAL HISTORY Never Assessed REASON FOR VISIT Requests return call PLAN OF CARE VITAL SIGNS MEDICATIONS Medication Instructions Dosage Frequency Start Date End Date Duration Status Levemir Flexpen 100 UNIT/ML Subcutaneous at bedtime inject 32 units Feb, 30 days Active RESULTS No Results PROCEDURES [...]
--- OUTSIDE RECORDS SUMMARY | 2018-03-23 10:27 | XMS REPORT ---
Author Author ROBBY MOORE [facility] Address [address] [place] [address] Care Team Providers Care Ledge Man Name Role Phone ROBBY MOORE Unavailable PROBLEMS Type Condition ICD9-CM Code AXB37-EN Code Onset Dates Condition Status SNOMED Code Problem Diabetic polyneuropathy associated with type 2 diabetes mellitus E11.42 Active 92132252 Problem Essential hypertension I10 Active 88498333 Problem Chronic obstructive pulmonary disease, unspecified COPD type J44.9 Active 19647596 Problem Bipolar disorder in full remission, most recent episode unspecified type F31.70 Active 17811311 Problem Type 2 diabetes mellitus with diabetic nephropathy E11.21 Active 296746076 Problem COPD with acute exacerbation J44.1 Active 092541692 Problem 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.8X3 Active 328312610 Problem 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.2 Active 052428741 Problem retirement current use of insulin Z79.4 Active 575065162 Problem Schizoaffective disorder, bipolar type F25.0 Active 10165860 Problem End stage renal disease N18.6 Active 235930326 ALLERGIES Substance Reaction Event Type Date Status [place] Seminary catatonic Drug Allergy Feb, Active Abilify diarrhea Drug Allergy Feb, Active ENCOUNTERS Encounter Location Date Diagnosis [facility] [id number], [place] [address] May, [facility] [id number] [address] Feb, Disseminated herpes zoster B02.7 [facility] [id number], [place] [address] Feb, [facility] [id number], [place] [address] Feb, COPD with acute exacerbation J44.1 [facility] [address], [place] [address] Feb, [facility] [id number] [place] [address] 96058- 0582 Feb, [facility] [id number] [place] [address] 10889- 2825 Jan, Schizoaffective disorder, bipolar type F25.0 [facility] [id number] [place] [address] 92919- 3018 Jan, Type 2 diabetes mellitus with diabetic nephropathy E11.21 [facility] [id number] [place] [address] 20556- 4149 Jan, 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.8X3 [facility] [id number] [place] [address] 46120- 1196 Jan, End stage renal disease N18.6 ; Chronic obstructive pulmonary disease, unspecified COPD type J44.9 ; 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.8X3 and Type 2 diabetes mellitus with diabetic nephropathy E11.21 [facility] [id number] [place] [address] 08490- 8576 Jan, [facility] [address] [place] [address] 70121- 8251 Jan, [facility] [id number] [place] [address] 83339- 0748 Jan, [facility] [id number] [place] [address] 33033- 2608 Jan, [facility] [id number] [place] [address] 37724- 7434 Dec, [facility] [id number] [place] [address] 46160- 2906 Dec, [facility] [address] [place] [address] 45361- 9703 Dec, [facility] [id number] [address] 69[address] Dec, [facility] [address], [place] [address] Dec, Schizoaffective disorder, bipolar type F25.0 [facility] [address], [place] [address] 3[address] Nov, [facility] [address], [place] [address] 50[address] Nov, [facility] [address], [place] [address] 9[address] Nov, Schizoaffective disorder, bipolar type F25.0 [facility] [address], [place] [address] Nov, [place] [address], [place] [address] 53[address] Nov, Type 2 diabetes mellitus with diabetic nephropathy E11.21 ; 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.4 ; Essential [...] SOCIAL HISTORY Never Assessed REASON FOR VISIT Cold symptoms--tcuppettRN, Cough, nasal congestion, and shortness of breath x 3 days PLAN OF CARE Activity Details Follow Up if not improving or with pcp for regular fu Reason: VITAL SIGNS Height 64 in 2018-03-17 Weight 223.9 lbs 2018-03-17 Temperature 98.5 degrees Fahrenheit 2018-03-17 Heart Rate 84 bpm 2018-03-17 Respiratory Rate 20 2018-03-17 Oximetry 94 % 2018-03-17 BMI 38.43 kg/m2 2018-03-17 Blood pressure systolic 110 mmHg 2018-03-17 Blood pressure diastolic 64 mmHg 2018-03-17 MEDICATIONS Medication Instructions Dosage Frequency Start Date End Date Duration Status Adjust Bath/Shower Seat/Back - use while showering Nov, Active Promethazine HCl 25 MG Orally every 8 hours, PRN 1 tablet as needed Active Atorvastatin Calcium 40 mg Orally Once a day 1 tablet 24h 30 days Active Hydrocodone-Acetaminophen 10-325 MG Orally every 8-12 hours, PRN 1 tablet as needed Nov, Active PredniSONE 20 mg Orally Once a day 2 tablet 24h Feb, Feb, 5 days Active Bath/Shower Seat - as directed Nov, Active BD Ultra-Fine Micro Pen Needle 32G X 6 MM 1 24h Jan, Active Escitalopram Oxalate 20 MG Orally Once a day 1 tablet 24h 30 days Active Renvela 800 MG Orally Three times a day 3 tablet with meals 8h 30 Active Doxycycline Hyclate 100 mg Orally twice a day 1 capsule 12h Feb, Mar, 10 day(s) Active Levemir Flexpen 100 UNIT/ML Subcutaneous at bedtime inject 32 units Feb, Active Levothyroxine Sodium 125 mcg Orally Once a day 1 tablet on an empty stomach in the morning 24h 30 Active Sodium Bicarbonate 325 MG as directed Active Gabapentin 300 MG Orally twice a day 1 capsule 12h 90 days Active Fish Oil 1000 MG Orally twice a day 2 capsule 12h Active ProAir HFA 108 (90 Base) MCG/ACT Inhalation every 6 hrs 2 puffs as needed 6h Feb, 30 days Active Epogen 21798 UNIT/ML Injection every week Active Furosemide 80 MG Orally Once a day 1 tablet 24h Active Olanzapine 7.5 MG Orally at night 1 tablet 30 Active Magnesium Oxide 400 MG Orally Once a day 1 capsule as needed 24h Active B Complex - Active Prilosec OTC 20 MG Orally Once a day 1 tablet 24h 30 day(s) Active RESULTS No Results PROCEDURES Procedure Date Ordered Result Body Site [facility] VISIT ESTABLISHED PATIENT Mar 17, 2018 INSTRUCTIONS MEDICATIONS ADMINISTERED No Known Medications [...]
--- OUTSIDE RECORDS SUMMARY | 2018-03-23 10:27 | XMS REPORT ---
Author Author FLOWER HUGO Organization [facility] Address [address] [place] [address] Care Team Providers Care Soil Specialist Name Role Phone FLOWER HUGO Unavailable PROBLEMS Type Condition ICD9-CM Code OEG41-LZ Code Onset Dates Condition Status SNOMED Code Problem Diabetic polyneuropathy associated with type 2 diabetes mellitus E11.42 Active 76717628 Problem Essential hypertension I10 Active 75979055 Problem Chronic obstructive pulmonary disease, unspecified COPD type J44.9 Active 23814605 Problem Bipolar disorder in full remission, most recent episode unspecified type F31.70 Active 18488024 Problem Type 2 diabetes mellitus with diabetic nephropathy E11.21 Active 996141392 Problem COPD with acute exacerbation J44.1 Active 110458303 Problem 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.8X3 Active 903894904 Problem 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.2 Active 599548476 Problem senior living current use of insulin Z79.4 Active 186556210 Problem Schizoaffective disorder, bipolar type F25.0 Active 60870823 Problem End stage renal disease N18.6 Active 796118580 ALLERGIES No Information ENCOUNTERS Encounter Location Date Diagnosis [facility] [address], [place] [address] May, [facility] [address] [place] [address]45 [address]682 Feb, Disseminated herpes zoster B02.7 [facility] [address] [place] [address] 55906- 8174 Feb, [facility] [id number] [place] [address] 59477- 0898 Feb, COPD with acute exacerbation J44.1 [facility] [address], [place] [address] 99[address] Feb, [facility] [address], [place] [address] 3[address] Feb, [facility] [id number] [place] [address] 76174- 7684 Jan, Schizoaffective disorder, bipolar type F25.0 [facility] [id number] [place] [address] 01927- 0544 Jan, Type 2 diabetes mellitus with diabetic nephropathy E11.21 [facility] [id number] [place] [address] 12586- 3951 Jan, 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.8X3 [facility] [id number] [place] [address] 63500- 8717 Jan, End stage renal disease N18.6 ; Chronic obstructive pulmonary disease, unspecified COPD type J44.9 ; 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.8X3 and Type 2 diabetes mellitus with diabetic nephropathy E11.21 [facility] [address] [place] [address] 29729- 4835 Jan, [facility] [id number] [place] [address] 01974- 8614 Jan, [facility] [address] [place] [address] 11197- 2463 Jan, [facility] [id number] [place] [address] 48876- 2055 Jan, [facility] [address], [place] [address]- 1046 Dec, [facility] [id number] [place] [address] 88083- 8547 Dec, [facility] [address], [place] [address]- 3863 Dec, [facility] [address] [place] [address] 06559- 4332 Dec, [facility] [id number], [place] [address]- 8427 Dec, Schizoaffective disorder, bipolar type F25.0 [facility] [id number], [place] [address]- 5933 Nov, [facility] [id number], [place] [address]- 2790 Nov, [facility] [address], [place] [address]- 3204 Nov, Schizoaffective disorder, bipolar type F25.0 [facility] [id number], [place] [address]- 6356 Nov, [facility] [id number], [place] [address]- 4431 Nov, Type 2 diabetes mellitus with diabetic [...] SOCIAL HISTORY Never Assessed REASON FOR VISIT med question PLAN OF CARE VITAL SIGNS MEDICATIONS Unknown [...]
--- OUTSIDE RECORDS SUMMARY | 2018-03-23 10:28 | XMS REPORT ---
Author Author FLOWER HUGO [facility] Address [address] [place] [address] Care Team Providers Care Propeller Inspector Name Role Phone FLOWER HUGO Unavailable PROBLEMS Type Condition ICD9-CM Code SZK57-HU Code Onset Dates Condition Status SNOMED Code Problem Bipolar disorder in full remission, most recent episode unspecified type F31.70 Active 69507861 Problem Chronic obstructive pulmonary disease, unspecified COPD type J44.9 Active 75750835 Problem Diabetic polyneuropathy associated with type 2 diabetes mellitus E11.42 Active 98413490 Problem Type 2 diabetes mellitus with diabetic nephropathy E11.21 Active 760999242 Problem 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.8X3 Active 983757031 Problem Schizoaffective disorder, bipolar type F25.0 Active 58723328 Problem termite treater helper current use of insulin Z79.4 Active 417617682 Problem Essential hypertension I10 Active 78369618 Problem End stage renal disease N18.6 Active 375577123 Problem 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.2 Active 279710230 ALLERGIES No Information ENCOUNTERS Encounter Location Date Diagnosis [place] [address], [place] [address] May, [facility] [id number] [place] [address] 72565- 4487 Feb, [facility] [id number] [place] [address] 18408- 4258 Jan, Schizoaffective disorder, bipolar type F25.0 [facility] [address] [place] [address] 55968- 9169 Jan, Type 2 diabetes mellitus with diabetic nephropathy E11.21 [facility] [address], [place] [address]- 7157 Jan, 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.8X3 [facility] [address], [place] [address]- 1869 Jan, End stage renal disease N18.6 ; Chronic obstructive pulmonary disease, unspecified COPD type J44.9 ; 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.8X3 and Type 2 diabetes mellitus with diabetic nephropathy E11.21 [facility] [id number] [place] [address] 27375- 1234 17 Jan, 2018 [facility] [id number] [place] [address] 81173- 3981 Jan, [facility] [id number] [place] [address] 08127- 2463 Jan, [facility] [id number] [place] [address] 59100- 8829 Jan, [facility] [id number] [place] [address] 19288- 1259 Dec, [facility] [id number] [place] [address] 58542- 6474 Dec, [facility] [id number] [place] [address] 82983- 7087 Dec, [facility] [address], [place] [address]- 2946 Dec, [facility] [address], [place] [address]- 5977 Dec, Schizoaffective disorder, bipolar type F25.0 [facility] [address], [place] [address]- 9814 Nov, [facility] [id number] [place] [address] 51489- 9427 Nov, [facility] [address], [place] [address]- 0892 Nov, Schizoaffective disorder, bipolar type F25.0 [facility] [id number] [address]- 7947 Nov, [facility] [place] [address] [facility] [id number] [place] [address]- 2893 Nov, Type 2 diabetes mellitus with diabetic nephropathy E11.21 ; snf current use of insulin Z79.4 ; Essential [...] SOCIAL HISTORY Never Assessed REASON FOR VISIT overnight spo2 PLAN OF CARE VITAL SIGNS MEDICATIONS Unknown [...]
--- OUTSIDE RECORDS SUMMARY | 2018-03-23 10:28 | XMS REPORT ---
Author Author FLOWER HUGO [facility] Address [address] [place] [address] Care Team Providers Care Glaciologist Name Role Phone FLOWER HUGO Unavailable PROBLEMS Type Condition ICD9-CM Code EEF97-WD Code Onset Dates Condition Status SNOMED Code Problem Bipolar disorder in full remission, most recent episode unspecified type F31.70 Active 13040192 Problem Chronic obstructive pulmonary disease, unspecified COPD type J44.9 Active 15287800 Problem Diabetic polyneuropathy associated with type 2 diabetes mellitus E11.42 Active 16490517 Problem Type 2 diabetes mellitus with diabetic nephropathy E11.21 Active 613600332 Problem 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.8X3 Active 767361862 Problem Schizoaffective disorder, bipolar type F25.0 Active 22888692 Problem long term care pharmacist current use of insulin Z79.4 Active 326557975 Problem Essential hypertension I10 Active 76791905 Problem End stage renal disease N18.6 Active 239878203 Problem 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.2 Active 776519892 ALLERGIES No Information ENCOUNTERS Encounter Location Date Diagnosis [place] [address], [place] [address] May, [facility] [id number] [place] [address] 55106- 9640 Feb, [facility] [id number] [place] [address] 24004- 6712 Jan, Schizoaffective disorder, bipolar type F25.0 [facility] [address] [place] [address] 07247- 6978 Jan, Type 2 diabetes mellitus with diabetic nephropathy E11.21 [facility] [address], [place] [address]- 1833 Jan, 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.8X3 [facility] [address], [place] [address]- 1504 Jan, End stage renal disease N18.6 ; Chronic obstructive pulmonary disease, unspecified COPD type J44.9 ; 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.8X3 and Type 2 diabetes mellitus with diabetic nephropathy E11.21 [facility] [id number] [place] [address] 97010- 2735 17 Jan, 2018 [facility] [id number] [place] [address] 94559- 8996 Jan, [facility] [id number] [place] [address] 05007- 1826 Jan, [facility] [id number] [place] [address] 05047- 8223 Jan, [facility] [id number] [place] [address] 02095- 4950 Dec, [facility] [id number] [place] [address] 21818- 6844 Dec, [facility] [id number] [place] [address] 02001- 9796 Dec, [facility] [address], [place] [address]- 6750 Dec, [facility] [address], [place] [address]- 3949 Dec, Schizoaffective disorder, bipolar type F25.0 [facility] [address], [place] [address]- 5801 Nov, [facility] [id number] [place] [address] 12479- 9268 Nov, [facility] [address], [place] [address]- 5776 Nov, Schizoaffective disorder, bipolar type F25.0 [facility] [id number] [address]- 7953 Nov, [facility] [address] [facility] [id number] [place] [address]- 5654 Nov, Type 2 diabetes mellitus with diabetic [...] SOCIAL HISTORY Never Assessed REASON FOR VISIT triage PLAN OF CARE VITAL SIGNS MEDICATIONS Unknown [...]
--- OUTSIDE RECORDS SUMMARY | 2018-03-23 10:28 | XMS REPORT ---
Author Author FLOWER HUGO Organization [facility] Address [address] [place] [address] Care Team Providers Care Analysis Evaluator Name Role Phone FLOWER HUGO Unavailable PROBLEMS Type Condition ICD9-CM Code ZCM40-LR Code Onset Dates Condition Status SNOMED Code Problem Bipolar disorder in full remission, most recent episode unspecified type F31.70 Active 65547793 Problem Chronic obstructive pulmonary disease, unspecified COPD type J44.9 Active 25836747 Problem Diabetic polyneuropathy associated with type 2 diabetes mellitus E11.42 Active 64025209 Problem Type 2 diabetes mellitus with diabetic nephropathy E11.21 Active 684983481 Problem 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.8X3 Active 865768995 Problem Schizoaffective disorder, bipolar type F25.0 Active 58426693 Problem intermediate teacher current use of insulin Z79.4 Active 571032808 Problem Essential hypertension I10 Active 09033415 Problem End stage renal disease N18.6 Active 068932465 Problem 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.2 Active 181079058 ALLERGIES No Information ENCOUNTERS Encounter Location Date Diagnosis [place] [id number] [place] [address] 15499- 3818 May, [facility] [id number] [place] [address] 81041- 0606 Jan, Schizoaffective disorder, bipolar type F25.0 [facility] [address] [place] [address] 41189- 0031 Jan, Type 2 diabetes mellitus with diabetic nephropathy E11.21 [facility] [id number] [place] [address] 27430- 1419 Jan, 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.8X3 [place] [address] [place] [address] 25103- 5110 Jan, End stage renal disease N18.6 ; Chronic obstructive pulmonary disease, unspecified COPD type J44.9 ; 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.8X3 and Type 2 diabetes mellitus with diabetic nephropathy E11.21 [facility] [address] [place] [address]- 1386 17 Jan, 2018 [facility] [id number] [place] [address] 92869- 1724 Jan, [facility] [id number] [place] [address], [place] [address]- 9367 Jan, [facility] [id number] [place] [address], [place] [address]- 7620 Jan, [facility] [id number] [place] [address], [place] [address]- 8981 Dec, [facility] [id number] [place] [address] 36666- 6694 Dec, [facility] [address] [address]- 6032 Dec, [facility] [id number] [place] [address] 02878- 6575 Dec, [facility] [address] [address]- 8889 Dec, Schizoaffective disorder, bipolar type F25.0 [facility] [address] [address]- 1916 Nov, [facility] [id number] [address]- 3632 Nov, [facility] [address] [address]- 1158 Nov, Schizoaffective disorder, bipolar type F25.0 [facility] [address] [address]- 4395 Nov, [facility] [id number] [address]- 9891 13 Nov, 2017 Type 2 diabetes mellitus with diabetic nephropathy E11.21 ; half-way current use of insulin Z79.4 ; Essential [...] SOCIAL HISTORY Never Assessed REASON FOR VISIT diabetic supplies PLAN OF CARE VITAL SIGNS MEDICATIONS Unknown [...]
--- OUTSIDE RECORDS SUMMARY | 2018-03-23 10:28 | XMS REPORT ---
Author Author MICHAEL OSBORN Organization [facility] Address [address] [place] [address] Care Team Providers Care Parts Counter Salesperson Name Role Phone MICHAEL OSBORN Unavailable PROBLEMS Type Condition ICD9-CM Code CWR00-YR Code Onset Dates Condition Status SNOMED Code Problem Bipolar disorder in full remission, most recent episode unspecified type F31.70 Active 91304767 Problem Chronic obstructive pulmonary disease, unspecified COPD type J44.9 Active 32261695 Problem Diabetic polyneuropathy associated with type 2 diabetes mellitus E11.42 Active 56334583 Problem Type 2 diabetes mellitus with diabetic nephropathy E11.21 Active 571119349 Problem 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.8X3 Active 489246818 Problem Schizoaffective disorder, bipolar type F25.0 Active 30320614 Problem shelter current use of insulin Z79.4 Active 122149265 Problem Essential hypertension I10 Active 89133323 Problem End stage renal disease N18.6 Active 473363668 Problem 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.2 Active 998504656 ALLERGIES Substance Reaction Event Type Date Status Rippey catatonic Drug Allergy Dec, Active Abilify diarrhea Drug Allergy Dec, Active ENCOUNTERS Encounter Location Date Diagnosis [facility] [id number] [address] Jan, [facility] [id number] [address] Jan, [facility] [id number] [place] [address] Jan, End stage renal disease N18.6 ; Chronic obstructive pulmonary disease, unspecified COPD type J44.9 ; 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.8X3 and Type 2 diabetes mellitus with diabetic nephropathy E11.21 [facility] [id number] [address] 17 Jan, 2018 [facility] [address] [address] Jan, [facility] [address] [address] Jan, [facility] [id number] [address] Jan, [facility] [id number] [place] [address]- 4637 Dec, [facility] [address] [place] [address]- 9459 Dec, [facility] [id number], [place] [address] Dec, [facility] [address] [place] [address]- 9715 Dec, [facility] [address] [address] Dec, Schizoaffective disorder, bipolar type F25.0 [facility] [address] [address] Nov, [facility] [address] [address] 0[address] Nov, [facility] [address] [address] Nov, Schizoaffective disorder, bipolar type F25.0 [facility] [address] [address] Nov, [facility] [address] [address] Nov, Type 2 diabetes mellitus with diabetic nephropathy E11.21 ; shelter current use of insulin Z79.4 ; Essential [...] SOCIAL HISTORY Never Assessed REASON FOR VISIT BH intake. Noe JANG PLAN OF CARE Activity Details Follow Up 6 Weeks Reason: VITAL SIGNS Height 64 in 2018-01-05 Weight 225 lbs 2018-01-05 Respiratory Rate 20 2018-01-05 BMI 38.62 kg/m2 2018-01-05 Blood pressure systolic 98 mmHg 2018-01-05 Blood pressure diastolic 60 mmHg 2018-01-05 MEDICATIONS Medication Instructions Dosage Frequency Start Date End Date Duration Status Calcitriol 0.5 MCG Orally Once a day 1 capsule 24h Active Furosemide 20 MG Orally twice a day 1 tablet 12h Active B Complex - Active Gabapentin 300 MG Orally twice a day 1 capsule 12h Active Hydrocodone-Acetaminophen 10-325 MG Orally every 8-12 hours, PRN 1 tablet as needed Nov, Active Levothyroxine Sodium 125 mcg Orally Once a day 1 tablet on an empty stomach in the morning 24h Active Atorvastatin Calcium 40 mg Orally Once a day 1 tablet 24h 30 days Active Bath/Shower Seat - as directed Nov, Active Epogen 32315 UNIT/ML Injection every other week Active Fish Oil 1000 MG Orally twice a day 2 capsule 12h Active Adjust Bath/Shower Seat/Back - use while showering Nov, Active Magnesium Oxide 400 MG Orally Once a day 1 capsule as needed 24h Active Renvela 800 MG Orally Three times a day 1 tablet with meals 8h Active Escitalopram Oxalate 20 MG Orally Once a day 1 tablet 24h 30 days Active Promethazine HCl 25 MG Orally every 8 hours, PRN 1 tablet as needed Active Olanzapine 7.5 MG Orally at night 1 tablet 30 days Active RESULTS No Results PROCEDURES Procedure Date Ordered Result Body Site [facility] VISIT ESTABLISHED PATIENT Jan 05, 2018 INSTRUCTIONS MEDICATIONS ADMINISTERED No Known Medications [...]
--- OUTSIDE RECORDS SUMMARY | 2018-03-23 10:28 | XMS REPORT ---
Author Author FLOWER HUGO [facility] Address [address] [place] [address] Care Team Providers Care Counseling Center Manager Name Role Phone FLOWER HUGO Unavailable PROBLEMS Type Condition ICD9-CM Code TFG30-OO Code Onset Dates Condition Status SNOMED Code Problem Bipolar disorder in full remission, most recent episode unspecified type F31.70 Active 32424117 Problem Chronic obstructive pulmonary disease, unspecified COPD type J44.9 Active 12771558 Problem Diabetic polyneuropathy associated with type 2 diabetes mellitus E11.42 Active 27045959 Problem Type 2 diabetes mellitus with diabetic nephropathy E11.21 Active 203913830 Problem 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.8X3 Active 339626517 Problem Schizoaffective disorder, bipolar type F25.0 Active 34787241 Problem rn long term care current use of insulin Z79.4 Active 112893537 Problem Essential hypertension I10 Active 00856983 Problem End stage renal disease N18.6 Active 930567479 Problem 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.2 Active 761057274 ALLERGIES No Information ENCOUNTERS Encounter Location Date Diagnosis [address], [place] [address] Jan, [facility] [address], [place] [address] Jan, [facility] [address], [place] [address] Jan, End stage renal disease N18.6 ; Chronic obstructive pulmonary disease, unspecified COPD type J44.9 ; 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.8X3 and Type 2 diabetes mellitus with diabetic nephropathy E11.21 [facility] [address], [place] [address]- [address] Jan, [facility] [id number] [address] Jan, [facility] [address], [place] [address]- 6[address] Jan, [facility] [address], [place] [address]- 70[address] Jan, [facility] [address], [place] [address]- [address]60 Dec, [facility] [address], [place] [address]- 8877 Dec, [facility] [address], [place] [address]- 39[address] Dec, [facility] [address], [place] [address]- [address] Dec, [facility] [address], [place] [address]- [address] Dec, Schizoaffective disorder, bipolar type F25.0 [facility] [address], [place] [address]- 6[address] Nov, [facility] [address], [place] [address]- [address] Nov, [facility] [address], [place] [address]- [address] Nov, Schizoaffective disorder, bipolar type F25.0 [facility] [address], [place] [address]- [address] Nov, [facility] [id number], [place] [address] Nov, Type 2 diabetes mellitus with diabetic [...] SOCIAL HISTORY Never Assessed REASON FOR VISIT Medication refill request PLAN OF CARE VITAL SIGNS MEDICATIONS Medication Instructions Dosage Frequency Start Date End Date Duration Status Renvela 800 MG Orally Three times a day 3 tablet with meals 8h Feb, 30 days Active RESULTS No Results [...]
--- OUTSIDE RECORDS SUMMARY | 2018-03-23 10:28 | XMS REPORT ---
Author Author FLOWER HUGO [facility] Address [address] [place] [address] Care Team Providers Care Pharmacogeneticist Name Role Phone FLOWER HUGO Unavailable PROBLEMS Type Condition ICD9-CM Code QDS51-KB Code Onset Dates Condition Status SNOMED Code Problem Bipolar disorder in full remission, most recent episode unspecified type F31.70 Active 67917943 Problem Chronic obstructive pulmonary disease, unspecified COPD type J44.9 Active 37779500 Problem Diabetic polyneuropathy associated with type 2 diabetes mellitus E11.42 Active 73137330 Problem Type 2 diabetes mellitus with diabetic nephropathy E11.21 Active 430787864 Problem 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.8X3 Active 774504112 Problem Schizoaffective disorder, bipolar type F25.0 Active 40725210 Problem terminal system operator current use of insulin Z79.4 Active 588896032 Problem Essential hypertension I10 Active 84349040 Problem End stage renal disease N18.6 Active 877929147 Problem 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.2 Active 880874826 ALLERGIES No Information ENCOUNTERS Encounter Location Date Diagnosis [address], [place] [address] Jan, [facility] [address], [place] [address]- 134[address] Jan, [facility] [address], [place] [address]- [address] Jan, End stage renal disease N18.6 ; Chronic obstructive pulmonary disease, unspecified COPD type J44.9 ; 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.8X3 and Type 2 diabetes mellitus with diabetic nephropathy E11.21 [facility] [address], [place] [address]- [address] Jan, [facility] [id number], [place] [address]- 95[address] Jan, [facility] [address], [place] [address]- 1623 Jan, [facility] [id number], [place] [address]- 8466 Jan, [facility] [id number], [place] [address]- 4247 Dec, [facility] [id number], [place] [address]- 5337 Dec, [facility] [id number], [place] [address]- 66[address] Dec, [facility] [address], [place] [address]- 8152 Dec, [facility] [address], [place] [address]- 43[address] Dec, Schizoaffective disorder, bipolar type F25.0 [facility] [address], [place] [address]- 8997 Nov, [facility] [address], [place] [address]- 6660 Nov, [facility] [address], [place] [address]- 5180 Nov, Schizoaffective disorder, bipolar type F25.0 [facility] [address], [place] [address]- 8057 Nov, [facility] [id number], [place] [address]- 6[address] Nov, Type 2 diabetes mellitus with diabetic nephropathy E11.21 ; [facility] current use of insulin Z79.4 ; Essential [...] HISTORY Never Assessed REASON FOR VISIT Medication question PLAN OF CARE VITAL SIGNS MEDICATIONS Medication Instructions Dosage Frequency Start Date End Date Duration Status Renvela 800 MG Orally Three times a day 1 tablet with meals 8h Mar, 30 days Active RESULTS No Results PROCEDURES [...]
--- OUTSIDE RECORDS SUMMARY | 2018-03-23 10:28 | XMS REPORT ---
Author Author FLOWER HUGO [facility] Address [address] [place] [address] Care Team Providers Care Cylinder Steamer Name Role Phone FLOWER HUGO Unavailable PROBLEMS Type Condition ICD9-CM Code DTZ48-IT Code Onset Dates Condition Status SNOMED Code Problem Bipolar disorder in full remission, most recent episode unspecified type F31.70 Active 36986927 Problem Chronic obstructive pulmonary disease, unspecified COPD type J44.9 Active 92068612 Problem Diabetic polyneuropathy associated with type 2 diabetes mellitus E11.42 Active 00658995 Problem Type 2 diabetes mellitus with diabetic nephropathy E11.21 Active 722807634 Problem 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.8X3 Active 055117378 Problem Schizoaffective disorder, bipolar type F25.0 Active 59276091 Problem 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 [id number] [place] [address]- [address]148 Feb, [facility] [id number] [place] [address]- 5340 Jan, Schizoaffective disorder, bipolar type F25.0 [facility] [address] [place] [address] 90878- 9333 Jan, Type 2 diabetes mellitus with diabetic nephropathy E11.21 [facility] [address] [address]- 9101 Jan, 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.8X3 [facility] [address] [address]- 3[address] Jan, End stage renal disease N18.6 ; Chronic obstructive pulmonary disease, unspecified COPD type J44.9 ; 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.8X3 and Type 2 diabetes mellitus with diabetic nephropathy E11.21 [facility] [id number] [place] [address]02- 0542 17 Jan, [address] [facility] [id number] [place] [address]796- 5246 Jan, [facility] [id number] [place] [address] 81346- [address] Jan, [facility] [id number] [place] [address]881- [address] Jan, [facility] [id number] [place] [address]87- 8987 Dec, [facility] [id number] [place] [address] 91062- [address] Dec, [facility] [id number] [place] [address] 95157- 3308 Dec, [facility] [address] [address]- 0361 Dec, [facility] [address] [address]- 5880 Dec, Schizoaffective disorder, bipolar type F25.0 [facility] [address] [address]- [address]18 Nov, [facility] [id number] [place] [address]77- 4360 Nov, [facility] [address] [address]- 9383 Nov, Schizoaffective disorder, bipolar type F25.0 [facility] [id number] [address]- 8549 Nov, [facility] [address] [facility] [id number] [place] [address]- 7003 Nov, Type 2 diabetes mellitus with diabetic [...] SOCIAL HISTORY Never Assessed REASON FOR VISIT Pen needles PLAN OF CARE VITAL SIGNS MEDICATIONS Medication Instructions Dosage Frequency Start Date End Date Duration Status BD Ultra-Fine Micro Pen Needle 32G X 6 MM 1 24h 25 Jan, 2018 Active RESULTS No Results PROCEDURES No Known [...]
--- OUTSIDE RECORDS SUMMARY | 2018-03-23 10:28 | XMS REPORT ---
Author Author FLOWER HUGO Organization [facility] Address [address] [place] [address] Care Team Providers Care Fire Prevention Research Engineer Name Role Phone FLOWER HUGO Unavailable PROBLEMS Type Condition ICD9-CM Code KTR83-JS Code Onset Dates Condition Status SNOMED Code Problem Bipolar disorder in full remission, most recent episode unspecified type F31.70 Active 28224596 Problem Chronic obstructive pulmonary disease, unspecified COPD type J44.9 Active 14662611 Problem Diabetic polyneuropathy associated with type 2 diabetes mellitus E11.42 Active 60772962 Problem Type 2 diabetes mellitus with diabetic nephropathy E11.21 Active 525691159 Problem 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.8X3 Active 605694094 Problem Schizoaffective disorder, bipolar type F25.0 Active 55198895 Problem 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.4 Active 134004145 Problem Essential hypertension I10 Active 99243323 Problem End stage renal disease N18.6 Active 089844304 Problem 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.2 Active 888419663 ALLERGIES No Information ENCOUNTERS Encounter Location Date Diagnosis [id number] [place] [address]34- 5312 May, [facility] [id number] [place] [address] 41153- 5454 Jan, Schizoaffective disorder, bipolar type F25.0 [facility] [address] [place] [address] 36543- 8499 Jan, Type 2 diabetes mellitus with diabetic nephropathy E11.21 [facility] [id number] [place] [address] 87581- 2877 Jan, 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.8X3 [id number] [place] [address] 77382- 3756 Jan, End stage renal disease N18.6 ; Chronic obstructive pulmonary disease, unspecified COPD type J44.9 ; 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.8X3 and Type 2 diabetes mellitus with diabetic nephropathy E11.21 [facility] [address] [place] [address]- 1141 17 Jan, 2018 [facility] [id number] [place] [address] 40744- 5696 Jan, [facility] [id number] [place] [address], [place] [address]- 4323 Jan, [facility] [id number] [place] [address], [place] [address]- 4253 Jan, [facility] [id number] [place] [address], [place] [address]- 7956 Dec, [facility] [id number] [place] [address] 85227- 2802 Dec, [facility] [address] [address]- 0105 Dec, [facility] [id number] [place] [address] 01332- 0033 Dec, [facility] [address] [address]- 5303 Dec, Schizoaffective disorder, bipolar type F25.0 [facility] [address] [address]- 2579 Nov, [facility] [id number] [address]- 6810 Nov, [facility] [id number] [address]- 0086 Nov, Schizoaffective disorder, bipolar type F25.0 [facility] [address] [address]- 1179 Nov, [facility] [id number] [address]- 3[address] 13 Nov, 2017 Type 2 diabetes mellitus [...]
--- OUTSIDE RECORDS SUMMARY | 2018-03-23 10:28 | XMS REPORT ---
Author Author FLOWER HUGO Organization [facility] Address [address] [place] [address] Care Team Providers Care Vp Production Name Role Phone FLOWER HUGO Unavailable PROBLEMS Type Condition ICD9-CM Code YMV08-XR Code Onset Dates Condition Status SNOMED Code Problem Bipolar disorder in full remission, most recent episode unspecified type F31.70 Active 82287539 Problem Chronic obstructive pulmonary disease, unspecified COPD type J44.9 Active 65136731 Problem Diabetic polyneuropathy associated with type 2 diabetes mellitus E11.42 Active 76534698 Problem Type 2 diabetes mellitus with diabetic nephropathy E11.21 Active 114436803 Problem 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.8X3 Active 392664464 Problem Schizoaffective disorder, bipolar type F25.0 Active 21831583 Problem 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.4 Active 429191115 Problem Essential hypertension I10 Active 82852342 Problem End stage renal disease N18.6 Active 373827218 Problem 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.2 Active 519509774 ALLERGIES No Information ENCOUNTERS Encounter Location Date Diagnosis [id number] [place] [address] 90393- 0171 May, [facility] [id number] [place] [address] 61774- 7608 Jan, Schizoaffective disorder, bipolar type F25.0 [facility] [address] [place] [address] 87427- 4103 Jan, Type 2 diabetes mellitus with diabetic nephropathy E11.21 [facility] [id number] [place] [address] 07405- 6340 Jan, 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.8X3 [place] [place] [id number] [place] [address] 90865- 2175 Jan, End stage renal disease N18.6 ; Chronic obstructive pulmonary disease, unspecified COPD type J44.9 ; 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.8X3 and Type 2 diabetes mellitus with diabetic nephropathy E11.21 [facility] [address] [address]- 6[address] 17 Jan, 2018 [facility] [id number] [place] [address] 78546- 4004 Jan, [facility] [id number] [place] [address], [place] [address]- 6315 Jan, [facility] [id number] [place] [address], [place] [address]- 1803 Jan, [facility] [id number] [place] [address], [place] [address]- 0233 Dec, [facility] [id number] [place] [address] 12111- 6854 Dec, [facility] [address] [address]- 0875 Dec, [facility] [id number] [place] [address] 15174- 5164 Dec, [facility] [address] [address]- 5067 Dec, Schizoaffective disorder, bipolar type F25.0 [facility] [id number] [address]- 2035 Nov, [facility] [id number] [address]- 8268 Nov, [facility] [id number] [address]- 8087 Nov, Schizoaffective disorder, bipolar type F25.0 [facility] [address] [address]- 4789 Nov, [facility] [id number] [address]- 7123 13 Nov, 2017 Type 2 diabetes mellitus [...]
--- OUTSIDE RECORDS SUMMARY | 2018-03-23 10:28 | XMS REPORT ---
Author Author FLOWER HUGO [facility] Address [address] [place] [address] Care Team Providers Care Edge Trimming Machine Operator Name Role Phone FLOWER HUGO Unavailable PROBLEMS ALLERGIES No Information ENCOUNTERS IMMUNIZATIONS No Known Immunizations SOCIAL HISTORY No smoking Hx information available REASON FOR VISIT PLAN OF CARE VITAL SIGNS MEDICATIONS RESULTS No Results PROCEDURES No Known procedures INSTRUCTIONS MEDICATIONS ADMINISTERED No Known Medications MEDICAL (GENERAL) HISTORY
--- OUTSIDE RECORDS SUMMARY | 2018-03-23 10:29 | XMS REPORT ---
Author Author FLOWER HUGO [facility] Address [address] [place] [address] Care Team Providers Care Projection Engineer Name Role Phone FLOWER HUGO Unavailable PROBLEMS Type Condition ICD9-CM Code [id number] Code Onset Dates Condition Status SNOMED Code Problem Bipolar disorder in full remission, most recent episode unspecified type F31.70 Active 03214195 Problem Chronic obstructive pulmonary disease, unspecified COPD type J44.9 Active 05773870 Problem Diabetic polyneuropathy associated with type 2 diabetes mellitus E11.42 Active 42236880 Problem Type 2 diabetes mellitus with diabetic nephropathy E11.21 Active 430096742 Problem 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.8X3 Active 789990596 Problem Schizoaffective disorder, bipolar type F25.0 Active 86743127 Problem 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.4 Active 107981022 Problem Essential hypertension I10 Active 94465889 Problem End stage renal disease N18.6 Active 763742731 Problem 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.2 Active 193551130 ALLERGIES No Information ENCOUNTERS Encounter Location Date Diagnosis [place] [address], [place] [address] Jan, [facility] [address], [place] [address] Jan, [facility] [address], [place] [address] Jan, End stage renal disease N18.6 ; Chronic obstructive pulmonary disease, unspecified COPD type J44.9 ; 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.8X3 and Type 2 diabetes mellitus with diabetic nephropathy E11.21 [facility] [address], [place] [address] Jan, [facility] [address], [place] [address] Jan, [facility] [address], [place] [address] Jan, [facility] [address], [place] [address] Jan, [facility] [address], [place] [address] Dec, [facility] [address], [place] [address] Dec, [facility] [address], [place] [address] Dec, [facility] [address], [place] [address] Dec, [facility] [address], [place] [address] Dec, Schizoaffective disorder, bipolar type F25.0 [facility] [address], [place] [address] Nov, [facility] [address], [place] [address] Nov, [facility] [address], [place] [address] Nov, Schizoaffective disorder, bipolar type F25.0 [facility] [address], [place] [address] Nov, [facility] [id number], [place] [address] Nov, Type 2 diabetes mellitus with diabetic nephropathy E11.21 ; [facility] current use of insulin Z79.4 ; Essential [...] SOCIAL HISTORY Never Assessed REASON FOR VISIT referral PLAN OF CARE VITAL SIGNS MEDICATIONS Unknown [...]
--- OUTSIDE RECORDS SUMMARY | 2018-03-23 10:29 | XMS REPORT ---
Author Author FLOWER UHGO Organization [facility] Address [address] [place] [address] Care Team Providers Care Non Destructive Evaluation Technician Name Role Phone FLOWER HUGO Unavailable PROBLEMS Type Condition ICD9-CM Code [id number] Code Onset Dates Condition Status SNOMED Code Problem Type 2 diabetes mellitus with diabetic nephropathy E11.21 Active 994233633 Problem Diabetic polyneuropathy associated with type 2 diabetes mellitus E11.42 Active 91095549 Problem Bipolar disorder in full remission, most recent episode unspecified type F31.70 Active 03940950 Problem Schizoaffective disorder, bipolar type F25.0 Active 63109021 Problem End stage renal disease N18.6 Active 334172935 Problem Essential hypertension I10 Active 82888082 Problem Chronic obstructive pulmonary disease, unspecified COPD type J44.9 Active 06204373 Problem 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.2 Active 502950286 Problem oil heaterman current use of insulin Z79.4 Active 615804898 ALLERGIES No Information ENCOUNTERS Encounter Location Date Diagnosis [facility] [address] [place] [address] Jan, [facility] [address] [place] [address] Jan, [facility] [address] [place] [address] Jan, [facility] [id number] [place] [address] Jan, [facility] [id number] [place] [address] Jan, [facility] [id number] [place] [address] Jan, [facility] [address] [address] Dec, [facility] [address] [address] Dec, [facility] [address] [address] Dec, [facility] [address] [place] [address] Dec, [facility] [id number] [place] [address] Dec, Schizoaffective disorder, bipolar type F25.0 [facility] [address] [place] [address] Nov, [facility] [id number] [place] [address] Nov, [facility] [id number] [place] [address] Nov, Schizoaffective disorder, bipolar type F25.0 [facility] [address] [place] [address] Nov, [facility] [address] [address] Nov, Type 2 diabetes mellitus with diabetic nephropathy E11.21 ; oil heaterman current use of insulin Z79.4 ; Essential [...] Frequency Start Date End Date Duration Status Gabapentin 300 MG Orally twice a day 1 capsule 12h 90 days Active RESULTS No Results PROCEDURES No [...]
[2018-03-23 11:05] LABS: BASOPHILS % (AUTO) 1 % (0-10); EOSINOPHILS # (AUTO) 0.3 10^3/uL (0.0-0.3); EOSINOPHILS % (AUTO) 3 % (0-10); HEMATOCRIT 33 % (35-52); HEMOGLOBIN 10.8 G/DL (11.5-16.0); LYMPHOCYTES # (AUTO) 1.6 X 10^3 (1.0-4.0); LYMPHOCYTES % (AUTO) 18 % (12-44); MEAN CORPUSCULAR HEMOGLOBIN 34 PG (25-34); MEAN CORPUSCULAR HGB CONC 33 G/DL (32-36); MEAN CORPUSCULAR VOLUME 104 FL (80-99); MEAN PLATELET VOLUME 8.9 FL (7.4-10.4); MONOCYTES # (AUTO) 0.7 X 10^3 (0.0-1.0); MONOCYTES % (AUTO) 8 % (0-12); NEUTROPHILS # (AUTO) 6.1 X 10^3 (1.8-7.8); NEUTROPHILS % (AUTO) 70 % (42-75); PLATELET COUNT 209 10^3/uL (130-400); RED BLOOD COUNT 3.15 10^6/uL (4.35-5.85); RED CELL DISTRIBUTION WIDTH 14.7 % (10.0-14.5); WHITE BLOOD COUNT 8.6 10^3/uL (4.3-11.0)
--- NOTE | 2018-03-23 11:14 | ED General ---
General Chief Complaint: Altered Mental Status Stated Complaint: CONFUSION Source of Information: Patient, Caregiver, Family Exam Limitations: No Limitations History of Present Illness Date Seen by Provider: Mar 23, 2018 Time Seen by Provider: 11:03 Initial Comments The patient is a 72-year-old white female brought to the emergency room by her daughter because of somnolence and confusion. She was diagnosed as having shingles on 02/15 and placed on acyclovir. She told her daughter that she felt confused almost from the beginning. She is now somnolent and confused. The daughter relates that she is on peritoneal dialysis and also has previously had hypercalcemia. Timing/Duration: 5-6 Days Allergies and Home Medications Allergies Coded Allergies: lithium (Verified Allergy, Unknown, 02/06/18) Patient Home Medication List Home Medication List Reviewed: Yes Review of Systems Review of Systems Constitutional: see HPI EENTM: no symptoms reported Respiratory: no symptoms reported Cardiovascular: no symptoms reported Gastrointestinal: no symptoms reported Genitourinary: other (peritoneal dialysis) Musculoskeletal: no symptoms reported Skin: other (vesicular eruption right posterior neck and shoulder and extending anteriorly over the clavicle.) Psychiatric/Neurological: Depressed Hematologic/Lymphatic: No Symptoms Reported Immunological/Allergic: no symptoms reported Past Lronolm-Knyrvl-Mvlcdn Hx Patient Social History Type Used: Cigarettes Recent Hopitalizations: No Immunizations Up To Date Tetanus Booster (TDap): Unknown PED Vaccines UTD: Yes Seasonal Allergies Seasonal Allergies: No Past Medical History Surgeries: Yes Appendectomy, Gallbladder, Hysterectomy, Tonsillectomy Respiratory: Yes Neurological: No Genitourinary: Yes Renal Failure Gastrointestinal: No Musculoskeletal: No Endocrine: No HEENT: No Cancer: No Psychosocial: No Integumentary: No Blood Disorders: No Physical Exam Vital Signs Vital Signs - First Documented 03/23/18 11:02 Temp 96.9 Pulse 78 Resp 20 B/P (MAP) 135/65 (88) Pulse Ox 93 Capillary Refill : Height, Weight, BMI Height: 5'3.00" Weight: 222lbs. oz. 100.861785tt; BMI Method:Stated General Appearance: Other (lethargic) Eyes: Bilateral Eye Normal Inspection HEENT: Normal ENT Inspection Neck: Other (vesicular eruption beginning at right posterior cervical area and migrating across the trapezius, the clavicle and to the upper right chest. It does not cross the midline.) Respiratory: Chest Non Tender, Lungs Clear, Normal Breath Sounds, No Accessory Muscle Use, No Respiratory Distress Cardiovascular: Regular Rate, Rhythm, No Edema, No Gallop, No JVD, No Murmur, Normal Peripheral Pulses Gastrointestinal: Normal Bowel Sounds, Other (abdomen is obese and spongy to palpation) Back: Normal Inspection Extremity: Normal Capillary Refill, Normal Inspection, Normal Range of Motion, Non Tender, No Calf Tenderness, No Pedal Edema Neurologic/Psychiatric: Alert, Oriented x3, No Motor/Sensory Deficits, Normal Mood/Affect Skin: Normal Color, Warm/Dry Lymphatic: No Adenopathy Focused Exam Lactate Level 03/23/18 10:47: Lactic Acid Level 2.51*H Lactic Acid Level Laboratory Tests Test 03/23/18 10:47 Lactic Acid Level 2.51 MMOL/L (0.50-2.00) *H Progress/Results/Core Measures Suspected Sepsis SIRS Temperature: Pulse: Respiratory Rate: Laboratory Tests 03/23/18 10:47: White Blood Count 8.6 Blood Pressure / Mean: 03/23/18 10:47: Lactic Acid Level 2.51*H Laboratory Tests 03/23/18 10:47: Creatinine 12.07H, Platelet Count 209, Total Bilirubin 0.7 Results/Orders Lab Results Laboratory Tests Test 03/23/18 10:39 03/23/18 10:47 Range/Units Glucometer 200 H 70-110 MG/DL White Blood Count 8.6 4.3-11.0 10^3/uL Red Blood Count 3.15 L 4.35-5.85 10^6/uL Hemoglobin 10.8 L 11.5-16.0 G/DL Hematocrit 33 L 35-52 % Mean Corpuscular Volume 104 H 80-99 FL Mean Corpuscular Hemoglobin 34 25-34 PG Mean Corpuscular Hemoglobin Concent 33 32-36 G/DL Red Cell Distribution Width 14.7 H 10.0-14.5 % Platelet Count 209 130-400 10^3/uL Mean Platelet Volume 8.9 7.4-10.4 FL Neutrophils (%) (Auto) 70 42-75 % Lymphocytes (%) (Auto) 18 12-44 % Monocytes (%) (Auto) 8 0-12 % Eosinophils (%) (Auto) 3 0-10 % Basophils (%) (Auto) 1 0-10 % Neutrophils # (Auto) 6.1 1.8-7.8 X 10^3 Lymphocytes # (Auto) 1.6 1.0-4.0 X 10^3 Monocytes # (Auto) 0.7 0.0-1.0 X 10^3 Eosinophils # (Auto) 0.3 0.0-0.3 10^3/uL Basophils # (Auto) 0.0 0.0-0.1 10^3/uL Sodium Level 141 135-145 MMOL/L Potassium Level 3.5 L 3.6-5.0 MMOL/L Chloride Level 99 98-107 MMOL/L Carbon Dioxide Level 26 21-32 MMOL/L Anion Gap 16 H 5-14 MMOL/L Blood Urea Nitrogen 81 H 7-18 MG/DL Creatinine 12.07 H 0.60-1.30 MG/DL Estimat Glomerular Filtration Rate 3 BUN/Creatinine Ratio 7 Glucose Level 190 H 70-105 MG/DL Lactic Acid Level 2.51 *H 0.50-2.00 MMOL/L Calcium Level 8.9 8.5-10.1 MG/DL Corrected Calcium 9.3 8.5-10.1 MG/DL Total Bilirubin 0.7 0.1-1.0 MG/DL Aspartate Amino Transf (AST/SGOT) 14 5-34 U/L Alanine Aminotransferase (ALT/SGPT) 20 0-55 U/L Alkaline Phosphatase 65 40-136 U/L Total Protein 6.3 L 6.4-8.2 GM/DL Albumin 3.5 3.2-4.5 GM/DL My Orders Orders - JERRY DEWEY MD Cbc With Automated Diff (03/23/18 10:56) Comprehensive Metabolic Panel (03/23/18 10:56) Blood Culture (03/23/18 10:56) Lactic Acid Analyzer (03/23/18 10:56) Vital Signs/I&O 03/23/18 11:02 Temp 96.9 Pulse 78 Resp 20 B/P (MAP) 135/65 (88) Pulse Ox 93 Capillary Refill : Departure Communication (Admissions) There is anatomy atlas was consulted for dermatomes and the vesicular findings are consistent with a C5 dermatome. 1145 discussed the case with Dr. Hugo. He would think that DCing the acyclovir and observing would be a reasonable course of action Impression Primary Impression: herpes zoster right C5 dermatome Additional Impression: reaction to acyclovir Disposition: HOME, SELF-CARE Condition: Stable/Unchanged Departure-Patient Inst. Decision time for Depature: 11:54 Referrals: FLOWER HUGO MD (PCP/Family) Primary Care Physician Add. Discharge Instructions: All discharge instructions reviewed with patient and/or family. Voiced understanding. Stop acyclovir. 2.encourage good fluid intake. 3.call [facility] tomorrow for further instructions. JERRY DEWEY MD Mar 23, 2018 11:14
[2018-03-23 11:26] LABS: ALBUMIN 3.5 GM/DL (3.2-4.5); BILIRUBIN,TOTAL 0.7 MG/DL (0.1-1.0); CALCIUM 8.9 MG/DL (8.5-10.1); CREATININE SERUM 12.07 MG/DL (0.60-1.30); POTASSIUM 3.5 MMOL/L (3.6-5.0); TOTAL PROTEIN 6.3 GM/DL (6.4-8.2)
[2018-03-23] MEDS ORDERED: PRD20T (11:40)
[2018-03-23] MEDS ORDERED: ATOR40TA70 (11:40)
[2018-03-23] MEDS ORDERED: ACYC800T (11:40)
[2018-03-23] MEDS ORDERED: FERR325T18 (11:40)
[2018-03-23] MEDS ORDERED: LEVO125T6 (11:40)
[2018-03-23] MEDS ORDERED: SEVE800T13 (11:40)
[2018-03-23] MEDS ORDERED: OLAN7.5T9 (11:40)
[2018-03-23] MEDS ORDERED: INSU100I29 (11:40)
[2018-03-23] MEDS ORDERED: DOXY100C2 (11:40)
[2018-03-23] MEDS ORDERED: RT-ALBUINH (11:40)
[2018-03-23] MEDS ORDERED: FURO40TA4 (11:40)
[2018-03-23] MEDS: NS IV 1000 ML 1,000 ML IV SCH (12:10)
[2018-03-23 13:00] VITALS: BP 132/70
== END 2018-03-23 13:00 | disposition home or self-care (01) ==
LOC: EDUNIT# 10:21 → ER 10:23
DX: B02.8 Zoster with other complications (principal); T37.5X5A Adverse effect of antiviral drugs, initial encounter; N18.6 End stage renal disease; Z88.0 Allergy status to penicillin; Z99.2 Dependence on renal dialysis; Z90.89 Acquired absence of other organs; Z90.710 Acquired absence of both cervix and uterus
CPT/HCPCS: 36415; 80053; 82962; 83605; 85025; 87040; 96360

== ENCOUNTER 2019-01-08 11:47 | Emergency (ER) | payer MEDICARE ==
[~2019-01-08] VITALS: Ht 160 cm; Wt 96.6 kg
[~2019-01-08 11:47] MED LIST: ACYC800T; ATOR40TA70; DOXY100C2; FERR325T18; FURO40TA4; INSU100I29; LEVO125T6; OLAN7.5T9; PRD20T; RT-ALBUINH; SEVE800T13
[2019-01-08] MEDS ORDERED: DEXTROSE 50% 50 ML (IMS) SYR ONE (11:58)
[2019-01-08 12:17] LABS: BASOPHILS % (AUTO) 0 % (0-10); EOSINOPHILS # (AUTO) 0.6 10^3/uL (0.0-0.3); EOSINOPHILS % (AUTO) 5 % (0-10); HEMATOCRIT 29 % (35-52); LYMPHOCYTES # (AUTO) 2.4 X 10^3 (1.0-4.0); LYMPHOCYTES % (AUTO) 17 % (12-44); MEAN CORPUSCULAR HGB CONC 32 G/DL (32-36); MEAN CORPUSCULAR VOLUME 100 FL (80-99); MEAN PLATELET VOLUME 8.5 FL (7.4-10.4); MONOCYTES # (AUTO) 1.4 X 10^3 (0.0-1.0); MONOCYTES % (AUTO) 10 % (0-12); NEUTROPHILS # (AUTO) 9.9 X 10^3 (1.8-7.8); NEUTROPHILS % (AUTO) 69 % (42-75); PLATELET COUNT 345 10^3/uL (130-400); RED CELL DISTRIBUTION WIDTH 13.6 % (10.0-14.5); WHITE BLOOD COUNT 14.3 10^3/uL (4.3-11.0)
[2019-01-08 12:20] LABS: MEAN CORPUSCULAR HEMOGLOBIN 31 PG (25-34)
--- NOTE | 2019-01-08 12:30 | NUR ---
PT SITTING UPRIGHT IN BED. PT RESPONSIVE AND ABLE TO CARRY ON A CONVERSATION. PT STATES THERE IS NOTHING SHE NEEDS AT THIS TIME.
[2019-01-08 12:36] LABS: ALBUMIN 3.2 GM/DL (3.2-4.5); BILIRUBIN,TOTAL 0.6 MG/DL (0.1-1.0); CALCIUM 9.2 MG/DL (8.5-10.1); CREATININE SERUM 10.83 MG/DL (0.60-1.30); POTASSIUM 3.5 MMOL/L (3.6-5.0); TOTAL PROTEIN 6.6 GM/DL (6.4-8.2)
--- NOTE | 2019-01-08 12:55 | NUR ---
MEAL TRY TO PT AT THIS TIME.
[2019-01-08] MEDS ORDERED: DEXTROSE 50% 50 ML (IMS) SYR IV ONE ×2 (13:00→13:30)
[2019-01-08 13:10] LABS: BAND NEUTROPHILS 4 %; BASOPHILS % (MANUAL) 0 %; EOSINOPHILS % (MANUAL) 1 %; LYMPHOCYTES % (MANUAL) 25 %; MONOCYTES % (MANUAL) 7 %; MYELOCYTES % 1 %; NEUTROPHILS % (MANUAL) 62 %; RBC MORPH NORMAL
--- NOTE | 2019-01-08 13:30 | NUR ---
PT ATE MEAL TRAY WHICH INCLUEDED A CHEESBURGER, YOGURT PARFAIT, AND TATOR TOTS.
--- NOTE | 2019-01-08 14:00 | NUR ---
PT ASSISTED TO BEDSIDE COMMOED AT THIS TIEM. PT REPORTS SHE INFREQUENTLY URINATES ANYMORE DUE TO END STAGE RENAL FAILURE BUT STATES SHE WILL ATTEMPT TO PRODUCE A SPECIMEN.
--- NOTE | 2019-01-08 14:05 | Diagnostic Imaging Report ---
Clinical indication: Patient with increased white count. Look for infection. Exam: Chest x-ray PA and lateral views. Comparisons: Chest x-ray dated 02/06/2018. Findings: Lungs/pleura: There is interval development of mild increased airspace opacity in the right lower lung field region which may represent subtle lung infiltrate. Otherwise, lungs are stable and clear. There is no pneumothorax. There is no pleural effusion. Mediastinum: Unremarkable. Pulmonary vasculature: Unremarkable. Heart: Stable cardiomegaly. Bones/extrathoracic soft tissue: There are hypertrophic degenerative osteophytes scattered throughout the thoracic spine. Impression: 1: There is interval development of subtle mild increased airspace opacification involving the right lower lung region which may represent subtle lung infiltrate/pneumonia. Follow up chest x-ray in 2 - 4 weeks is suggested to evaluate for interval resolution of this finding. 2: Mild cardiomegaly. 3: The remainder of this exam shows no significant interval change compared to the prior study of comparison. Dictated by: Dictated on workstation # [id number]
--- NOTE | 2019-01-08 14:07 | NUR ---
PT REPROTS SHE WAS UNABLE TO VOID. PT ASSISTED BACK INTO BED AT THIS TIEM. DR BOONE NOTIFIED. PT REPORTS NO CURRENT NEEDS AT THIS TIME.
[2019-01-08] MEDS ORDERED: cefTRIAXone FOR IV USE 1,000 MG in WATER (STERILE) FOR INJECTION 10 ML IV ONE (14:45)
[2019-01-08] MEDS ORDERED: AZIT250T12 PO ×2 (14:52→16:16)
--- NOTE | 2019-01-08 14:52 | ED General ---
General Chief Complaint: Glucose Problems Stated Complaint: AMS Nursing Triage Note: PT TO ROOM 06 VIA WC. PT BROUGHT BY DAUGHTER WITH C/O AWAKE BUT NOT REPSONDING OR UNDERSTANDING TO VERBAL COMMANDS. Nursing Sepsis Screen: No Definite Risk Source of Information: Patient Exam Limitations: No Limitations History of Present Illness Date Seen by Provider: Jan 08, 2019 Time Seen by Provider: 11:55 Initial Comments This 73-year-old woman is brought to the emergency room by her daughter with concerns about possible stroke. Last known well time was about 30 minutes prior to arrival. Patient was getting ready to leave the house to have lunch with her daughter. She put on her shoes and suddenly became less responsive and could not answer questions appropriately or follow commands appropriately. She had no obvious focal deficits of weakness or numbness. Stroke activation was paged by nursing staff. Upon my assessment she was found to be generally weak and somnolent. She was slightly diaphoretic. Fingerstick blood sugar was 33. Patient took her insulin this morning and ate a couple of yogurt. She did not have a significant amount of carbs. Allergies and Home Medications Allergies Coded Allergies: lithium (Verified Allergy, Unknown, 02/06/18) Home Medications Azithromycin 250 Mg Tablet, 250 MG PO UD TAKE 2 TABLETS ON DAY ONE THEN TAKE 1 TABLET DAILY FOR FOUR MORE DAYS Prescribed by: FE CALDERA on 01/08/19 [id number] Patient Home Medication List Home Medication List Reviewed: Yes Review of Systems Review of Systems Constitutional: see HPI EENTM: no symptoms reported Respiratory: no symptoms reported Cardiovascular: no symptoms reported Gastrointestinal: no symptoms reported Genitourinary: no symptoms reported Musculoskeletal: no symptoms reported Skin: see HPI Psychiatric/Neurological: See HPI Hematologic/Lymphatic: No Symptoms Reported Past Npxrydj-Ctjjrz-Aenmvq Hx Past Med/Social Hx: Reviewed and Corrections made Patient Social History Alcohol Use: Occasionally Uses Recreational Drug Use: No Smoking Status: Former Smoker Type Used: Cigarettes Recent Foreign Travel: No Contact w/Someone Who Travel: No Recent Infectious Disease Expo: No Recent Hopitalizations: No Physical Abuse: No Sexual Abuse: No Mistreated: No Fear: No Immunizations Up To Date Tetanus Booster (TDap): Unknown PED Vaccines UTD: Yes Seasonal Allergies Seasonal Allergies: No Past Medical History Surgeries: Yes Appendectomy, Gallbladder, Hysterectomy, Tonsillectomy Respiratory: Yes Pneumonia, Chronic Bronchitis, COPD Cardiac: Yes High Cholesterol Neurological: No Genitourinary: Yes Renal Failure Gastrointestinal: No Musculoskeletal: No Endocrine: Yes Diabetes, Insulin dep, Hypothyroidsim HEENT: No Cancer: No Psychosocial: No Integumentary: No Blood Disorders: No Physical Exam Vital Signs Vital Signs - First Documented 01/08/19 12:10 Temp 95.9 Pulse 66 Resp 14 B/P (MAP) 189/93 (125) Pulse Ox 90 O2 Delivery Room Air Capillary Refill : Less Than 3 Seconds Height, Weight, BMI Height: 5'3.00" Weight: 213lbs. oz. 96.714834fy; BMI Method:Stated General Appearance: WD/WN, Other (somnolent, weak) HEENT: PERRL/EOMI, Normal ENT Inspection Neck: Normal Inspection Respiratory: Lungs Clear, Normal Breath Sounds, No Accessory Muscle Use, No Respiratory Distress Cardiovascular: Regular Rate, Rhythm, No Edema, No Murmur Gastrointestinal: Normal Bowel Sounds, Non Tender, Soft Extremity: Normal Inspection, No Pedal Edema Neurologic/Psychiatric: No Motor/Sensory Deficits, Normal Mood/Affect, admitting officer II- XII Norm as Tested, Other (generally weak without focal deficits. Somnolent with decreased alertness) Skin: Normal Color, Diaphoresis Progress/Results/Core Measures Suspected Sepsis Recent Fever Within 48 Hours: No Infection Criteria Present: None New/Unexplained Altered Menta: No Sepsis Screen: No Definite Risk SIRS Temperature:95.9 Pulse: 66 Respiratory Rate: 14 Laboratory Tests 01/08/19 12:00: White Blood Count 14.3H Blood Pressure 189 /93 Mean: 125 Laboratory Tests 01/08/19 12:00: Creatinine 10.83H, Platelet Count 345, Total Bilirubin 0.6 Results/Orders Lab Results Laboratory Tests Test 01/08/19 12:00 01/08/19 12:04 01/08/19 13:25 01/08/19 14:02 Range/Units White Blood Count 14.3 H 4.3-11.0 10^3/uL Red Blood Count 2.86 L 4.35-5.85 10^6/uL Hemoglobin 9.0 L 11.5-16.0 G/DL Hematocrit 29 L 35-52 % Mean Corpuscular Volume 100 H 80-99 FL Mean Corpuscular Hemoglobin 31 25-34 PG Mean Corpuscular Hemoglobin Concent 32 32-36 G/DL Red Cell Distribution Width 13.6 10.0-14.5 % Platelet Count 345 130-400 10^3/uL Mean Platelet Volume 8.5 7.4-10.4 FL Neutrophils (%) (Auto) 69 42-75 % Lymphocytes (%) (Auto) 17 12-44 % Monocytes (%) (Auto) 10 0-12 % Eosinophils (%) (Auto) 5 0-10 % Basophils (%) (Auto) 0 0-10 % Neutrophils # (Auto) 9.9 H 1.8-7.8 X 10^3 Lymphocytes # (Auto) 2.4 1.0-4.0 X 10^3 Monocytes # (Auto) 1.4 H 0.0-1.0 X 10^3 Eosinophils # (Auto) 0.6 H 0.0-0.3 10^3/uL Basophils # (Auto) 0.0 0.0-0.1 10^3/uL Neutrophils % (Manual) 62 % Lymphocytes % (Manual) 25 % Monocytes % (Manual) 7 % Eosinophils % (Manual) 1 % Basophils % (Manual) 0 % Myelocytes % 1 % Band Neutrophils 4 % Blood Morphology Comment NORMAL Sodium Level 142 135-145 MMOL/L Potassium Level 3.5 L 3.6-5.0 MMOL/L Chloride Level 101 98-107 MMOL/L Carbon Dioxide Level 29 21-32 MMOL/L Anion Gap 12 5-14 MMOL/L Blood Urea Nitrogen 46 H 7-18 MG/DL Creatinine 10.83 H 0.60-1.30 MG/DL Estimat Glomerular Filtration Rate 3 BUN/Creatinine Ratio 4 Glucose Level 29 *L 70-105 MG/DL Calcium Level 9.2 8.5-10.1 MG/DL Corrected Calcium 9.8 8.5-10.1 MG/DL Total Bilirubin 0.6 0.1-1.0 MG/DL Aspartate Amino Transf (AST/SGOT) 21 5-34 U/L Alanine Aminotransferase (ALT/SGPT) 15 0-55 U/L Alkaline Phosphatase 91 40-136 U/L Total Protein 6.6 6.4-8.2 GM/DL Albumin 3.2 3.2-4.5 GM/DL Glucometer 33 *L 50 *L 196 H 70-110 MG/DL Test 01/08/19 14:45 Range/Units Glucometer 212 H 70-110 MG/DL My Orders Orders - FE BOONE MD D50w (Emergency) Syringe (Dextrose 50% 5 (01/08/19 11:58) Cbc With Automated Diff (01/08/19 12:11) Comprehensive Metabolic Panel (01/08/19 12:11) Ed Iv/Invasive Line Start (01/08/19 12:11) General/Regular (01/08/19 Lunch) Manual Differential (01/08/19 12:00) D50w (Emergency) Syringe (Dextrose 50% 5 (01/08/19 13:00) Chest Pa/Lat (2 View) (01/08/19 13:22) Accucheck Stat ONCE (01/08/19 13:22) D50w (Emergency) Syringe (Dextrose 50% 5 (01/08/19 13:30) Ceftriaxone For Iv Use (Rocephin For I (01/08/19 14:45) Accucheck Stat ONCE (01/08/19 14:33) Medications Given in ED Vital Signs/I&O 01/09/19 00:00 Intake Total 10 ml Balance 10 ml Capillary Refill : Less Than 3 Seconds Blood Pressure Mean: 125 Point of Care Testing Finger Stick Blood Glucose: 196 Blood Glucose Action Taken: PROVIDER NOTIFIED. Progress Note : Progress Note Stroke workup was abandoned after hypoglycemia was noted. Patient was given a dose of D50 with immediate response. This was repeated after repeat blood sugar check. Patient was also fed. There was eventually a satisfactory response with symptoms and blood sugar. Patient is discharged home with her daughter. Leukocytosis was noted and workup for source of infection was pursued. Chest x- ray was obtained. UA was not collected as patient is on dialysis and makes very little urine. A dose of Rocephin was administered and azithromycin was prescribed. Departure Impression Primary Impression: Hypoglycemia Additional Impression: Right lower lobe pneumonia Qualified Codes: J18.1 - Lobar pneumonia, unspecified organism Disposition: 01 HOME, SELF-CARE Condition: Improved Departure-Patient Inst. Decision time for Depature: 14:35 Referrals: FLOWER HUGO MD (PCP/Family) Primary Care Physician Patient Instructions: HYPOGLYCEMIA, Pneumonia, Adult (DC) Add. Discharge Instructions: Complete your antibiotics as prescribed. Follow-up with your primary care provider as soon as possible. Return to the emergency room with worsening symptoms. Continue with dialysis as previously directed. All discharge instructions reviewed with patient and/or family. Voiced understanding. Scripts Azithromycin (Azithromycin) 250 Mg Tablet 250 MG PO UD, #6 TAB TAKE 2 TABLETS ON DAY ONE THEN TAKE 1 TABLET DAILY FOR FOUR MORE DAYS Prov: FE BOONE MD 01/08/19 Copy Copies To 1: FLOWER HUGO MD, JOSHUA T MD Jan 08, 2019 14:52
--- NOTE | 2019-01-08 14:57 | NUR ---
PT'S DAUGHTER CALLED AND INFORMED THAT PT IS BEING DISCHAGED. DAUGHTER STATED SHE WILL BE HERE TO PICK PT UP.
[2019-01-08 15:01] VITALS: BP 118/63
== END 2019-01-08 15:01 | disposition home or self-care (01) ==
LOC: EDUNIT# 11:47 → ER 11:50
DX: E11.649 Type 2 diabetes mellitus with hypoglycemia without coma (principal); J18.1 Lobar pneumonia, unspecified organism; J44.9 Chronic obstructive pulmonary disease, unspecified; E78.00 Pure hypercholesterolemia, unspecified; E03.9 Hypothyroidism, unspecified; Z79.4 Long term (current) use of insulin; Z88.8 Allergy status to other drugs, medicaments and biological substances; Z87.891 Personal history of nicotine dependence; Z90.49 Acquired absence of other specified parts of digestive tract; Z90.89 Acquired absence of other organs; Z90.710 Acquired absence of both cervix and uterus
CPT/HCPCS: 36415; 71046; 80053; 82962; 85007; 85027; 93005

== ENCOUNTER 2019-07-01 09:40 | Emergency (ER) | payer MEDICARE ==
[~2019-07-01] VITALS: Ht 160 cm; Wt 100.0 kg
[~2019-07-01 09:40] MED LIST changes: +AZIT250T12 PO
[2019-07-01] MEDS ORDERED: cefTRIAXone FOR IV USE 1,000 MG in WATER (STERILE) FOR INJECTION 10 ML IV ONE (10:15)
[2019-07-01] MEDS ORDERED: ACETAMINOPHEN 500 MG TAB (TYLENOL) PO PRN (10:15)
[2019-07-01] MEDS ORDERED: AZITHROMYCIN INJECTION 500 MG in NS (IVPB) 250 ML IV ONE (10:15)
[2019-07-01 10:21] LABS: BASOPHILS % (AUTO) 0 % (0-10); EOSINOPHILS % (AUTO) 0 % (0-10); HEMATOCRIT 34 % (35-52); HEMOGLOBIN 11.1 G/DL (11.5-16.0); LYMPHOCYTES # (AUTO) 1.3 X 10^3 (1.0-4.0); LYMPHOCYTES % (AUTO) 10 % (12-44); MEAN CORPUSCULAR HEMOGLOBIN 34 PG (25-34); MEAN CORPUSCULAR HGB CONC 32 G/DL (32-36); MEAN CORPUSCULAR VOLUME 107 FL (80-99); MEAN PLATELET VOLUME 9.8 FL (7.4-10.4); MONOCYTES # (AUTO) 1.1 X 10^3 (0.0-1.0); MONOCYTES % (AUTO) 8 % (0-12); NEUTROPHILS # (AUTO) 10.3 X 10^3 (1.8-7.8); NEUTROPHILS % (AUTO) 81 % (42-75); PLATELET COUNT 105 10^3/uL (130-400); RED CELL DISTRIBUTION WIDTH 13.8 % (10.0-14.5); WHITE BLOOD COUNT 12.7 10^3/uL (4.3-11.0)
[2019-07-01] MEDS ORDERED: methylPREDNISolone 125 MG (Solu-MEDROL) VIAL IVP ONE (10:30)
[2019-07-01] MEDS ORDERED: RT-ALBUTEROL/IPRATROPIUM 3 ML (DUONEB) VIAL INH ONE ×2 (10:30→12:15)
[2019-07-01] MEDS ORDERED: DEXAMETHASONE 4 MG/ML SDV (DECADRON) IH ONE (10:30)
--- NOTE | 2019-07-01 10:32 | Diagnostic Imaging Report ---
EXAM: CHEST 1 VIEW, AP/PA ONLY INDICATION: Shortness of air. Weakness. COMPARISON: 01/08/2019. FINDINGS: Stable prominent heart size and mild pulmonary vascular congestion. No focal pulmonary opacities. No pleural effusion or pneumothorax. No acute osseous findings. Calcified aorta. IMPRESSION: Stable prominent heart size and mild pulmonary vascular congestion. Dictated by: Dictated on workstation # [id number]
--- NOTE | 2019-07-01 10:35 | NUR ---
ATTEMPT FOR ABD UNSUCCESSFUL.
[2019-07-01 10:39] LABS: ALBUMIN 3.4 GM/DL (3.2-4.5); BILIRUBIN,TOTAL 0.5 MG/DL (0.1-1.0); CALCIUM 8.6 MG/DL (8.5-10.1); CREATININE SERUM 12.82 MG/DL (0.60-1.30); MAGNESIUM 1.6 MG/DL (1.6-2.4); POTASSIUM 3.8 MMOL/L (3.6-5.0); TOTAL PROTEIN 6.5 GM/DL (6.4-8.2)
--- NOTE | 2019-07-01 10:42 | NUR ---
CIRILO IN ROOM ATTEMPTING ABG.
[2019-07-01] MEDS ORDERED: OSELTAMIVIR 75 MG (TAMIFLU) CAPSULE PO ONE (10:45)
[2019-07-01 10:46] LABS: INR 0.9 (0.8-1.4); PROTHROMBIN TIME PATIENT 12.9 SEC (12.2-14.7)
[2019-07-01 10:52] LABS: ABG BASE EXCESS 1.9 MMOL/L (-2.5-2.5); ABG OXYGEN SATURATION 83 % (94-100); ABG PCO2 42 MMHG (35-45); ABG PH 7.42 (7.37-7.43); ABG PO2 57 MMHG (79-93)
[2019-07-01 10:54] LABS: ALLENS TEST YES-POS; INSPIRED O2 2; PATIENT TEMP 38.3; VENTILATOR NO
[2019-07-01 11:00] LABS: TSH (THYROID ANALYZER) 0.8 UIU/ML (0.35-4.94)
--- NOTE | 2019-07-01 11:06 | NUR ---
LISA HAS BEEN CONTACTED ET WILL CALL DR TAM BACK.
--- NOTE | 2019-07-01 11:24 | ED General ---
General Chief Complaint: Cough/Cold/Flu Symptoms Stated Complaint: SHAKY/WEAKNESS/LETHARGIC Nursing Triage Note: ARRIVED VIA WC WITH COMPLAINTS OF GENERALIZED WEAKNESS, COUGH, AND FEVER. PT IS ON HOME DIALYSIS NIGHTLY Nursing Sepsis Screen: No Definite Risk Source of Information: Patient, Family (DAUGHTER) History of Present Illness Date Seen by Provider: Jul 01, 2019 Time Seen by Provider: 09:56 Initial Comments PT ARRIVES VIA POV FROM HOME STATES SHE STARTED GETTING SICK ON Tuesday06/29/19 PT STATES SHE HAS BEEN WEAK, SHAKEY AND LETHARGIC HAS HAD INCREASE IN HER CHRONIC COUGH SINCE TUESDAY, WITH CLEAR TO YELLOW SPUTUM HAS HAD INCREASE IN NASAL CONGESTION HAS HAD SHORTNESS OF BREATH SINCE TUESDAY HAS HAD FEVER OF 100.5 SINCE TUESDAY--TEMP UP TO 101.5 THIS AM--HAS NOT HAD ANYTHING FOR HER FEVER PT DOES NOT NORMALLY WEAR HOME O2, BUT O2 SAT IS 88% ON ARRIVAL--UP TO UPPER 90'S ON O2 AT 2L/NC PT STATES SHE DOES GET BRONCHITIS AND PNEUMONIA EASILY, AND HAS INHALERS AND NEBULIZER AT HOME, BUT HAS NOT USED IT AT LEAST 2 MONTHS. NO CHEST PAIN NO SWELLING IN LEGS/FEET OR PAIN IN CALVES PT HAS END STAGE RENAL FAILURE AND IS ON DAILY, HOME PERITONEAL DIALYSIS WENT TO [facility] ON TUESDAY FOR ROUTINE LAB--RESULTS NOT KNOWN STATES SHE RARELY URINATES, AND LAST VOID WAS LAST NIGHT. ALSO SAW HER PCP, DR. HUGO FOR THESE SYMPTOMS, BUT NO TESTS WERE DONE AND NO RX'S GIVEN. PT AND DAUGHTER LIVE TOGETHER, DAUGHTER HAS HAD MILD COUGH/CONGESTION AND HEADACHE, BUT NO FEVER OR BODY ACHES BOTH PT AND DAUGHTER RECEIVED FLU VACCINATIONS THIS SEASON PCP: [facility]-DR. BETHEL FRITZ SAMPLE STITCHER: DR. Maninder TAYLOR--ROUTINE EXAM IN MAY, NEXT APPOINTMENT IS THIS TUESDAY Allergies and Home Medications Allergies Coded Allergies: lithium (Verified Allergy, Unknown, 02/06/18) Home Medications Azithromycin 250 Mg Tablet, 250 MG PO UD TAKE 2 TABLETS ON DAY ONE THEN TAKE 1 TABLET DAILY FOR FOUR MORE DAYS Prescribed by: FE CALDERA on 01/08/19 7555 Patient Home Medication List Home Medication List Reviewed: Yes Review of Systems Review of Systems Constitutional: see HPI, fever, malaise, weakness EENTM: see HPI, nose congestion Respiratory: see HPI, cough, phlegm, short of breath, wheezing Cardiovascular: no symptoms reported; No chest pain, No edema, No palpitations, No syncope Gastrointestinal: no symptoms reported; No abdominal pain, No nausea, No vomiting Genitourinary: see HPI Musculoskeletal: no symptoms reported Skin: no symptoms reported Psychiatric/Neurological: No Symptoms Reported; Denies Headache Hematologic/Lymphatic: No Symptoms Reported Immunological/Allergic: no symptoms reported Past Evbyhdb-Vjcmax-Srtgho Hx Past Med/Social Hx: Reviewed and Corrections made Patient Social History Alcohol Use: Past History Recreational Drug Use: Yes (PAST HISTORY) Smoking Status: Former Smoker (1 PPD, QUIT FEW YEARS AGO. ) Type Used: Cigarettes Recent Foreign Travel: No Contact w/Someone Who Travel: No Recent Infectious Disease Expo: No Recent Hopitalizations: No Immunizations Up To Date Tetanus Booster (TDap): Unknown PED Vaccines UTD: Yes Seasonal Allergies Seasonal Allergies: No Past Medical History Surgeries: Yes Appendectomy, Gallbladder, Hysterectomy, Tonsillectomy Respiratory: Yes Pneumonia, Chronic Bronchitis, COPD Cardiac: Yes High Cholesterol Neurological: No Genitourinary: Yes (HOME DIALYSIS) Renal Failure Gastrointestinal: No Musculoskeletal: No Endocrine: Yes Diabetes, Insulin dep, Hypothyroidsim HEENT: No Cancer: No Psychosocial: No Integumentary: No Blood Disorders: No Physical Exam Vital Signs Capillary Refill : Less Than 3 Seconds Height, Weight, BMI Height: 5'3.00" Weight: 213lbs. oz. 96.164283sa; 39.00 BMI Method:Stated General Appearance: Obese, Other (UNKEMPT, PURPLE HAIR, MILDLY LETHARGIC, VERY MALODOROUS. ) HEENT: PERRL/EOMI Neck: Normal Inspection Respiratory: Decreased Breath Sounds (IN BASES), Other (SCATTERED RALES/RHONCHI BILATERALLY) Cardiovascular: Regular Rate, Rhythm, No JVD, No Murmur Gastrointestinal: Non Tender, Other (OBESE. LLQ PERITONEAL DIALYSIS TUBING/SHUNT. ) Extremity: No Pedal Edema Neurologic/Psychiatric: Alert, Oriented x3, No Motor/Sensory Deficits, Other (MILDLY LETHARGIC) Skin: Normal Color, Warm/Dry Focused Exam Lactate Level Lactic Acid Level Progress/Results/Core Measures Suspected Sepsis Recent Fever Within 48 Hours: No Infection Criteria Present: None New/Unexplained Altered Menta: No Sepsis Screen: No Definite Risk SIRS Temperature: Pulse: 94 Respiratory Rate: 16 Blood Pressure 146 /65 Mean: 92 Results/Orders Lab Results Micro Results My Orders Medications Given in ED Vital Signs/I&O Capillary Refill : Less Than 3 Seconds Blood Pressure Mean: 92 Progress Note : Progress Note NO DETERIORATION IN PT'S CONDITION DURING ER STAY VITALS STABLE, GIVEN HOUR LONG NEB TREATMENT WITH IMPROVEMENT IN AERATION AND O2 SATS. ECG Initial ECG Impression Date: Jul 01, 2019 Initial ECG Impression Time: 10:10 Initial ECG Rate: 90 Initial ECG Rhythm: Normal Sinus Initial ECG Impression: Nonspecific Changes Diagnostic Imaging Comments CXR--CARDIOMEGALY--STABLE, MILD PULMONARY VASCULAR CONGESTION, PER RADIOLOGIST REPORT AT 1039 Reviewed: Reviewed by Me Departure Communication (Admissions) 1057--SPOKE WITH DR. RAMON, HOSPITALIST. CANNOT KEEP PT HERE DUE TO PERITONEAL DIALYSIS, PER HOSPITAL POLICY. 1100--CALLED [facility], PT PREFERENCE. 1131--SPOKE WITH DR. NICKERSON, ACCEPTS PT FOR ADMIT/TRANSFER 1211--CALLED [facility], STILL NO BED ASSIGNMENT YET. THEY WILL CALL BACK WITH BED ASSIGNMENT Impression Primary Impression: Acute respiratory failure with hypoxia Additional Impressions: Influenza B ESRD on peritoneal dialysis Sepsis Disposition: XFER SHT-TRM HOSP Condition: Improved Transfer Transfer Reason: Exceeds level of care Transfer Facility: [facility] Method of Transfer: EMS Departure-Patient Inst. Referrals: FLOWER HUGO MD (PCP/Family) Primary Care Physician ADDISON TAM DO Jul 01, 2019 11:24
[2019-07-01] MEDS ORDERED: RT-ALBUTEROL SULF 2.5 MG/3 ML PRE-MIX VIAL INH STA (12:15)
[2019-07-01] MEDS ORDERED: RT-IPRATROPIUM (ATROVENT) 0.5MG/2.5ML AMP IH ONE (12:15)
--- NOTE | 2019-07-01 12:15 | NUR ---
RT HERE TO START HOUR LONG TREATMENT
--- NOTE | 2019-07-01 12:53 | NUR ---
SHIFT CAPTAIN AND DISPATCH NOTIFIE OF TRANSFER.
[2019-07-01 13:35] VITALS: BP 123/63
--- OUTSIDE RECORDS SUMMARY | 2019-07-09 10:44 | XMS REPORT ---
Author Author SHIPMANJessy 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 657465520 Problem Type 2 diabetes mellitus with diabetic nephropathy E11.21 Active 666158941 Problem End stage renal disease N18.6 Active 715409274 Problem Bipolar disorder in full rem ission, most recent episode unspecified type F31.70 Active 14674314 Problem Essential hypertension I10 Active 57639237 Problem Chronic obstructive pulmonary disease, unspecified COPD ty pe J44.9 Active 12899086 Problem Diabetic polyneuropathy associated with type 2 d iabetes mellitus E11.42 Active 70333219 Problem COPD with acute exacerbation J44.1 A ctive 515631839 Problem Acquired hypothyroidism E03.9 Active 121951494 Problem Arthritis of knee, left M17.12 Active 1930110696365097 Problem Arthritis M19.90 Active 7181103 Problem 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.8X3 Active 297676277 Problem Hypoglycemia E16.2 Active 0311881 03 Problem Schizoaffective disorder, bipolar type F25.0 Active 42169958 Problem Other chronic pain G89.29 Active 8 8796808 Problem Hallucinations R44.3 Active 07356 01 Problem Vaginal prolapse N81.10 Active 398 606079 Problem 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 [address] [id number] [place] [address] Jun, [facility] [address] [id number] [place] [address] Jun, [facility] [address] [id number] [place] [address] Jun, [facility] [address] [facility] [address] May, [facility] [address] [place] [address] May, [facility] [address] [id number] [place] [address] May, [facility] [address] [place] [address] May, [facility] [address] [id number] [place] [address] May, [facility] [address] [id number] [place] [address] May, [facility] [address] [id number] [place] [address] May, [facility] [address] [id number] [place] [address] Apr, [facility] [address] [id number] [place] [address] Apr, [facility] [address] [id number] [place] [address] Apr, [facility] [address] [id number] [place] [address] Apr, [facility] [address] [id number] [place] [address] Apr, [facility] [address] [id number] [place] [address] Apr, [facility] [address] [id number] [place] [address] Apr, [facility] [address] [id number] [place] [address] Apr, [facility] [address] [id number] [place] [address] Apr, [facility] [id number] [place] [address] Apr, [facility] [address] [id number] [place] [address] Apr, [facility] [id number] [place] [address] Apr, [facility] [id number] [place] [address], [place] [address] Apr, [facility] [id number] [place] [address] Apr, [facility] [id number] [place] [address] Apr, [facility] [address] [place] [address] Mar, [facility] [address] [place] [address] Mar, [facility] [address] [address] Mar, [facility] [id number] [place] [address] Mar, [facility] [address] [address] Mar, [facility] [id number] [place] [address] Mar, Other chronic pain G89.29 ; Pain in left knee M25.562 and Pain in right knee M25.561 [facility] [id number] [place] [address] Mar, [facility] [address] [address] Mar, [facility] [address] [address] Mar, [facility] [id number] [place] [address] Mar, [facility] [id number] [place] [address] Mar, [facility] [address] [place] [address] Mar, [facility] [address] [place] [address] Mar, [facility] [address] [address] Mar, Arthritis M19.90 and Contusion of left ivett garcia, initial encounter S80.02XA [facility] [address] [place] [address] Mar, [facility] [address] [place] [address] Mar, [facility] [address] [place] [address] Mar, [facility] [address] [address] Mar, [facility] [address] [place] [address] Mar, [facility] [address] [place] [address] Mar, [facility] [address] [address] Feb, [facility] [address] [address] Feb, [facility] [id number] [place] [address] Feb, [facility] [address] [place] [address] Feb, [facility] [id number] [place] [address] Feb, [facility] [address] [address] Feb, [facility] [address] [address] Feb, [facility] [address] [address] Feb, [facility] [address] [address] Feb, [facility] [address] [address] Feb, [facility] [address] [address] Feb, [facility] [address] [address] Feb, [facility] [address] [address] Feb, Schizoaffective disorder, bipolar type F 25.0 [facility] [address] [address] Feb, [facility] [address] [address] Jan, [facility] [address] [address] Jan, [facility] [address] [address] Jan, [facility] [address] [address] Jan, [facility] [address] [address] 17 Jan, 2019 [facility] [address] [address] Jan, Arthritis M19.90 ; Diabetic polyneuropat hy associated with type 2 diabetes mellitus E11.42 and Encounter for immunization Z23 [facility] [address] [address] Jan, [facility] [address] [address] Jan, [facility] [address] [address] Jan, [facility] [address] [address] Jan, [facility] [address] [address] Dec, [facility] [address] [address] Dec, [facility] [address] [address] Dec, Nail hypertrophy L60.2 ; Onychomycosis B 35.1 and Self-care deficit for grooming and hygiene Z74.1 [facility] [address] [address] Dec, [facility] [address] [address] Dec, [facility] [address] [address] Dec, [facility] [address] [address] Dec, Type 2 diabetes mellitus with diabetic n ephropathy E11.[address] [facility] [address] [address] Dec, [facility] [address] [address] Dec, [facility] [address] [address] Dec, [facility] [address] [address] Dec, [facility] [address] [address] Dec, [facility] [address] [address] Dec, [facility] [id number] [place] [address] Nov, [facility] [address] [place] [address] Nov, [facility] [address] [place] [address] Nov, [facility] [address] [place] [address] Nov, [facility] [address] [address] Nov, [facility] [address] [address] Nov, [facility] [address] [address] Nov, Other chronic pain G89.29 ; Pain in left knee M25.562 ; Pain in right knee M25.[address] [facility] [id number] [place] [address] Nov, [facility] [address] [address] Nov, [facility] [id number] [place] [address] Nov, Arthritis M19.90 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 [address] [place] [address] Nov, [facility] [id number] [place] [address] Nov, [facility] [address] [id number] [place] [address] Nov, Other chronic pain G89.29 [facility] [id number] [place] [address] Nov, [facility] [id number] [place] [address] Nov, [facility] [id number] [place] [address] Oct, [facility] [id number] [place] [address] Oct, [facility] [id number] [place] [address] Oct, Other chronic pain G89.29 [facility] [id number] [place] [address] Oct, [facility] [id number] [place] [address] Oct, [facility] [id number] [place] [address] Oct, [facility] [id number] [place] [address] Oct, [facility] [id number] [place] [address] Oct, [facility] [id number] [place] [address] Oct, 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 [id number] [place] [address] Oct, [facility] [id number] [place] [address] Oct, Dermatitis L30.9 [facility] [address] [place] [address] Oct, [facility] [address] [address] Oct, Schizoaffective disorder, bipolar type F 25.0 [facility] [address] [address] Oct, [facility] [address] [address] Oct, Dermatitis L30.9 [facility] [address] [address] September, [facility] [address] [address] September, [facility] [address] [address] September, Encounter for immunization Z23 [facility] [address] [address] September, [facility] [address] [address] September, [facility] [address] [address] September, [facility] [address] [address] September, [facility] [address] [address] September, [facility] [address] [address] September, [facility] [address] [address] September, [facility] [address] [place] [address] September, Type 2 diabetes mellitus with diabetic n ephropathy E11.21 and Diabetic polyneuropathy associated with type [address] [facility] [address] [place] [address] September, [facility] [address] [place] [address] September, [facility] [id number] [place] [address] Aug, [facility] [address] [place] [address] Aug, [facility] [address] [facility] [id number] [address] [address] Aug, Vaginal prolapse N81.10 and Hemorrhoids, unspecified hemorrhoid type K64.9 [facility] [address] [address] Aug, [facility] [address] [address] Aug, [facility] [id number] [place] [address] Aug, [facility] [address] [address] Aug, [facility] [address] [address] Aug, Other chronic pain G89.29 ; Pain in left knee M25.562 and Pain in right knee M25.561 [facility] [address] [place] [address] 15 Aug, 2018 [facility] [address] [address] Aug, [facility] [address] [address] Aug, [facility] [address] [address] Aug, [facility] [address] [address] Aug, [facility] [address] [address] Aug, Bronchitis J40 [facility] [address] [address] Aug, Bronchitis J40 [facility] [address] [address] Aug, Bronchitis J40 ; Chest congestion R09.89 and Chronic obstructive pulmonary disease, unspecified COPD type J44.9 [facility] [address] [address] Aug, [facility] [address] [address] Aug, [facility] [address] [facility] [id number] [address] [place] [address] Jul, Medication side effects T88. 7XXA and Hallucinations R44.3 [facility] [address] [address] Jul, [facility] [address] [address] Jul, [place] [address] [address] Jul, [facility] [address] [address] Jul, [facility] [address] [address] Jul, Arthritis of knee, left M17.12 and Diabe tic polyneuropathy associated with type [address] [facility] [address] [address] Jul, [facility] [address] [address] Jul, [facility] [address] [address] Jul, [facility] [address] [place] [address] Jul, [facility] [address] [address] Jul, Bronchitis J40 and Type 2 diabetes belem gilmore with diabetic nephropathy E11.21 [facility] [address] [address] Jul, [facility] [address] [address] Jun, [facility] [address] [address] Jun, [facility] [address] [address] Jun, Encounter for immunization Z23 [facility] [address] [address] Jun, [facility] [address] [address] Jun, Schizoaffective disorder, bipolar type F 25.0 [facility] [address] [address] Jun, [facility] [address] [address] Jun, [facility] [address] [address] Jun, [facility] [address] [facility] [id number] [address] [place] [address] May, Abscess, gluteal, right L02. 31 [facility] [address] [address] May, Schizoaffective disorder, bipolar type F 25.0 [facility] [address] [address] May, [facility] [address] [place] [address] May, [facility] [address] [address] May, [facility] [address] [address] May, [facility] [address] [address] Apr, [facility] [address] [address] Mar, Encounter for immunization Z23 [facility] [address] [address] Mar, [facility] [address] [address] Mar, Type 2 diabetes mellitus with diabetic n ephropathy E11.21 [place] [address] [address] Mar, Medication side effect T88.7XXA ; Type 2 diabetes mellitus with diabetic nephropathy E11.21 and Acquired hypothyroidism E03.9 [facility] [address] [address] Mar, [facility] [address] [address] Mar, [facility] [address] [address] Feb, [facility] [address] [address] Feb, [facility] [address] [facility] [id number] [address] [place] [address] Feb, Disseminated herpes zoster B 02.7 [facility] [address] [address] Feb, [facility] [address] [address] Feb, COPD with acute exacerbation J44.1 [facility] [id number] [place] [address] Feb, [facility] [address] [address] Feb, [facility] [address] [address] Jan, Schizoaffective disorder, bipolar type F 25.0 [facility] [address] [address] Jan, Type 2 diabetes mellitus with diabetic n ephropathy E11.21 [facility] [address] [address] Jan, Other specified hearing loss of both ear s H91.8X3 [facility] [address] [address] Jan, End stage renal disease N18.6 ; Chronic obstructive pulmonary disease, unspecified COPD type J44.9 ; 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.8X3 and Type 2 diabetes mellitus with diabetic nephropathy E11.21 [facility] [id number] [place] [address] Jan, [facility] [address] [address] Jan, [facility] [address] [address] Jan, [facility] [address] [address] Jan, [facility] [address] [address] Dec, [facility] [address] [address] Dec, [facility] [address] [address] Dec, [facility] [address] [address] Dec, [facility] [address] [id number] [place] [address] Dec, Schizoaffective disorder, bipolar type F 25.[address] [facility] [address] [id number] [place] [address] Nov, [facility] [id number] [place] [phone] Nov, [facility] [address] [address] Nov, Schizoaffective disorder, bipolar type F 25.[address] [facility] [id number] [place] [id number] Nov, [facility] [id number] [place] [phone] Nov, Type 2 diabetes mellitus with diabetic n ephropathy E11.21 ; termite control technician current use of insulin Z79.4 ; Essential [...] SOCIAL HISTORY Never Assessed REASON FOR VISIT peer support group PLAN OF CARE VITAL SIGNS MEDICATIONS Unknown Medications RESULTS No Results PROCEDURES No Known procedures INSTRUCTIONS MEDICATIONS ADMINISTERED No Known Medications MEDICAL (GENERAL) HISTORY Type Description Date Medical History chronic renal failure Medical History type II diabetes Medical History chronic obstructive pulmonary disease (C OPD) Medical History hypertension Medical History thyroid disorder Surgical History hysterectomy, total with bilateral salpi moreno-oophorectomy (BSO) Surgical History tonsillectomy and adenoidectomy Surgical History appendectomy Surgical History cholecystectomy Hospitalization History pneumonia 09/07 Hospitalization History pneumonia 10/04 Hospitalization History multiple psychiatric inpatie nt treatments, most recent 2003
--- OUTSIDE RECORDS SUMMARY | 2019-07-09 10:44 | XMS REPORT ---
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9 Active 221364412 Problem Arthritis of knee, left M17.12 Active 3730613080900659 Problem Arthritis M19.90 Active 7022023 Problem 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.8X3 Active 504883293 Problem Hypoglycemia E16.2 Active 8330748 03 Problem Schizoaffective disorder, bipolar type F25.0 Active 72447435 Problem Other chronic pain G89.29 Active 8 1507920 Problem Hallucinations R44.3 Active 11696 01 Problem Vaginal prolapse N81.10 Active 398 128993 Problem 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 Active 5 9633721 ALLERGIES No Information ENCOUNTERS Encounter Location Date Diagnosis [facility] [address] [id number] [place] [address] Jun, [facility] [address] [id number] [place] [address] Jun, [facility] [address] [facility] [id number] [place] [address] Jun, [facility] [address] [facility] [place] [address] May, [facility] [address] [facility] [place] [address] May, [facility] [address] [id number] [place] [address] May, [facility] [address] [facility] [place] [address] May, [facility] [address] [id number] [place] [address] May, [facility] [address] [id number] [place] [address] May, [facility] [address] [id number] [place] [address] May, [facility] [address] [id number] [place] [address] Apr, [facility] [address] [id number] [place] [address] Apr, [facility] [address] [id number] [place] [address] Apr, [facility] [address] [id number] [place] [address] Apr, [facility] [address] [id number] [place] [address] Apr, [facility] [address] [id number] [place] [address] Apr, [facility] [address] [id number] [place] [address] Apr, [facility] [address] [id number] [place] [address] Apr, [facility] [address] [id number] [place] [address] Apr, [facility] [id number] [place] [address] Apr, [facility] [address] [id number] [place] [address] Apr, [facility] [id number] [place] [address] Apr, [facility] [id number] [place] [address], [place] [address] Apr, [facility] [id number] [place] [address] Apr, [facility] [id number] [place] [address] Apr, [facility] [address] [place] [address] Mar, [facility] [address] [place] [address] Mar, [facility] [address] [address] Mar, [facility] [id number] [place] [address] Mar, [facility] [address] [address] Mar, [facility] [id number] [place] [address] Mar, Other chronic pain G89.29 ; Pain in left knee M25.562 and Pain in right knee M25.561 [facility] [id number] [place] [address] Mar, [facility] [address] [address] Mar, [facility] [address] [address] Mar, [facility] [id number] [place] [address] Mar, [facility] [id number] [place] [address] Mar, [facility] [address] [place] [address] Mar, [facility] [address] [place] [address] Mar, [facility] [address] [address] Mar, Arthritis M19.90 and Contusion of left ivett garcia, initial encounter S80.02XA [facility] [address] [place] [address] Mar, [facility] [address] [place] [address] Mar, [facility] [address] [place] [address] Mar, [facility] [address] [address] Mar, [facility] [address] [place] [address] Mar, [facility] [address] [place] [address] Mar, [facility] [address] [address] Feb, [facility] [address] [address] Feb, [facility] [id number] [place] [address] Feb, [facility] [address] [place] [address] Feb, [facility] [id number] [place] [address] Feb, [facility] [address] [address] Feb, [facility] [address] [address] Feb, [facility] [address] [address] Feb, [facility] [address] [address] Feb, [facility] [address] [address] Feb, [facility] [address] [address] Feb, [facility] [address] [address] Feb, [facility] [address] [address] Feb, Schizoaffective disorder, bipolar type F 25.0 [facility] [address] [address] Feb, [facility] [address] [address] Jan, [facility] [address] [address] Jan, [facility] [address] [address] Jan, [facility] [address] [address] Jan, [facility] [address] [address] 17 Jan, 2019 [facility] [address] [address] Jan, Arthritis M19.90 ; Diabetic polyneuropat hy associated with type 2 diabetes mellitus E11.42 and Encounter for immunization Z23 [facility] [address] [address] Jan, [facility] [address] [address] Jan, [facility] [address] [address] Jan, [facility] [address] [address] Jan, [facility] [address] [address] Dec, [facility] [address] [address] Dec, [facility] [address] [address] Dec, Nail hypertrophy L60.2 ; Onychomycosis B 35.1 and Self-care deficit for grooming and hygiene Z74.1 [facility] [address] [address] Dec, [facility] [address] [address] Dec, [facility] [address] [address] Dec, [facility] [address] [address] Dec, Type 2 diabetes mellitus with diabetic n ephropathy E11.21 and Hypoglycemia E16.2 [facility] [address] [address] Dec, [facility] [address] [address] Dec, [facility] [address] [address] Dec, [facility] [address] [address] Dec, [facility] [address] [address] Dec, [facility] [address] [address] Dec, [facility] [id number] [place] [address] Nov, [facility] [id number] [place] [address] Nov, [facility] [id number] [place] [address] Nov, [facility] [id number] [place] [address] Nov, [facility] [address] [address] Nov, [facility] [address] [address] Nov, [facility] [address] [address] Nov, Other chronic pain G89.29 ; Pain in left knee M25.562 ; Pain in right knee M25.561 and Bronchitis J40 [facility] [id number] [place] [address] Nov, [facility] [address] [address] Nov, [facility] [id number] [place] [address] Nov, Arthritis M19.90 [facility] [address] [address] Nov, Encounter for Medicare annual wellness e xam Z00.00 ; Diabetic polyneuropathy associated with type 2 diabetes mellitus E11.42 ; Bipolar disorder in full remission, most recent episode unspecified type F31.70 ; Chronic obstructive pulmonary disease, unspecified COPD type J44.9 ; Essential hypertension I10 ; End stage renal disease N18.6 ; 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.2 and Acquired hypothyroidism E03.9 [facility] [id number] [place] [address] Nov, [facility] [id number] [place] [address] Nov, [facility] [address] [id number] [place] [address] Nov, Other chronic pain G89.29 [facility] [id number] [place] [address] Nov, [facility] [id number] [place] [address] Nov, [facility] [id number] [place] [address] Oct, [facility] [id number] [place] [address] Oct, [facility] [id number] [place] [address] Oct, Other chronic pain G89.29 [facility] [id number] [place] [address] Oct, [facility] [id number] [place] [address] Oct, [facility] [id number] [place] [address] Oct, [facility] [id number] [place] [address] Oct, [facility] [id number] [place] [address] Oct, [facility] [id number] [place] [address] Oct, [facility] [id number] [place] [address] Oct, Type 2 diabetes mellitus with diabetic n ephropathy E11.21 and 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 [facility] [id number] [place] [address] Oct, [facility] [id number] [place] [address] Oct, Dermatitis L30.9 [facility] [id number] [place] [address] Oct, [facility] [address] [address] Oct, Schizoaffective disorder, bipolar type F 25.0 [facility] [address] [address] Oct, [facility] [address] [address] Oct, Dermatitis L30.9 [facility] [address] [address] September, [facility] [address] [address] September, [facility] [address] [address] September, Encounter for immunization Z23 [facility] [address] [address] September, [facility] [address] [address] September, [facility] [address] [address] September, [facility] [address] [address] September, [facility] [address] [address] September, [facility] [address] [address] September, [facility] [address] [address] September, [facility] [id number] [place] [address] September, Type 2 diabetes mellitus with diabetic n ephropathy E11.21 and Diabetic polyneuropathy associated with type 2 diabetes mellitus E11.42 [facility] [id number] [place] [address] September, [facility] [id number] [place] [address] September, [facility] [id number] [place] [address] Aug, [facility] [id number] [place] [address] Aug, [facility] [address] [facility] [id number] [address] [address] Aug, Vaginal prolapse N81.10 and Hemorrhoids, unspecified hemorrhoid type K64.9 [facility] [address] [address] Aug, [facility] [address] [address] Aug, [facility] [id number] [place] [address] Aug, [facility] [address] [address] Aug, [facility] [address] [address] Aug, Other chronic pain G89.29 ; Pain in left knee M25.562 and Pain in right knee M25.561 [facility] [id number] [place] [address] 15 Aug, 2018 [facility] [address] [address] Aug, [facility] [address] [address] Aug, [facility] [address] [address] Aug, [facility] [address] [address] Aug, [facility] [address] [address] Aug, Bronchitis J40 [facility] [address] [address] Aug, Bronchitis J40 [facility] [address] [address] Aug, Bronchitis J40 ; Chest congestion R09.89 and Chronic obstructive pulmonary disease, unspecified COPD type J44.9 [facility] [address] [address] Aug, [facility] [address] [address] Aug, [facility] [address] [facility] [id number] [address] [place] [address] Jul, Medication side effects T88. 7XXA and Hallucinations R44.3 [facility] [address] [address] Jul, [facility] [address] [address] Jul, [place] [address] [address] Jul, [facility] [address] [address] Jul, [facility] [address] [address] Jul, Arthritis of knee, left M17.12 and Diabe tic polyneuropathy associated with type 2 diabetes mellitus E11.42 [facility] [address] [address] Jul, [facility] [address] [address] Jul, [facility] [address] [address] Jul, [facility] [id number] [place] [address] Jul, [facility] [address] [address] Jul, Bronchitis J40 and Type 2 diabetes belem gilmore with diabetic nephropathy E11.21 [facility] [address] [address] Jul, [facility] [address] [address] Jun, [facility] [address] [address] Jun, [facility] [address] [address] Jun, Encounter for immunization Z23 [facility] [address] [address] Jun, [facility] [address] [address] Jun, Schizoaffective disorder, bipolar type F 25.0 [facility] [address] [address] Jun, [facility] [address] [address] Jun, [facility] [address] [address] Jun, [facility] [address] [facility] [id number] [address] [place] [address] May, Abscess, gluteal, right L02. 31 [facility] [address] [address] May, Schizoaffective disorder, bipolar type F 25.0 [facility] [address] [address] May, [facility] [address] [place] [address] May, [facility] [address] [address] May, [facility] [address] [address] May, [facility] [address] [address] Apr, [facility] [address] [address] Mar, Encounter for immunization Z23 [facility] [address] [address] Mar, [facility] [address] [address] Mar, Type 2 diabetes mellitus with diabetic n ephropathy E11.21 [place] [address] [address] Mar, Medication side effect T88.7XXA ; Type 2 diabetes mellitus with diabetic nephropathy E11.21 and Acquired hypothyroidism E03.9 [facility] [address] [address] Mar, [facility] [address] [address] Mar, [facility] [address] [address] Feb, [facility] [address] [address] Feb, [facility] [address] [facility] [id number] [address] [place] [address] Feb, Disseminated herpes zoster B 02.7 [facility] [address] [address] Feb, [facility] [address] [address] Feb, COPD with acute exacerbation J44.1 [facility] [id number] [place] [address] Feb, [facility] [address] [address] Feb, [facility] [address] [address] Jan, Schizoaffective disorder, bipolar type F 25.0 [facility] [address] [address] Jan, Type 2 diabetes mellitus with diabetic n ephropathy E11.21 [facility] [address] [address] Jan, Other specified hearing loss of both ear s H91.8X3 [facility] [address] [address] Jan, End stage renal disease N18.6 ; Chronic obstructive pulmonary disease, unspecified COPD type J44.9 ; 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.8X3 and Type 2 diabetes mellitus with diabetic nephropathy E11.21 [facility] [id number] [place] [address] Jan, [facility] [address] [address] Jan, [facility] [address] [address] Jan, [facility] [address] [address] Jan, [facility] [address] [address] Dec, [facility] [address] [address] Dec, [facility] [address] [address] Dec, [facility] [address] [address] Dec, [facility] [address] [id number] [place] [address] Dec, Schizoaffective disorder, bipolar type F 25.0 [facility] [address] [id number] [place] [address] Nov, [facility] [id number] [place] [phone] Nov, [facility] [address] [address] Nov, Schizoaffective disorder, bipolar type F 25.0 [facility] [id number] [place] [phone] Nov, [facility] [id number] [place] [phone] Nov, Type 2 diabetes mellitus with diabetic n ephropathy E11.21 ; rat exterminator current use of insulin Z79.4 ; Essential [...]
--- OUTSIDE RECORDS SUMMARY | 2019-07-09 10:46 | XMS REPORT | Continuity of Care Document ---
Author Organization Unknown Address Unknown Phone Unavailable Allergies There is no data. Medications There is no data. Problems There is no data. Procedures There is no data. Results Test Result Range TSH - 03/28/18 11:06 TSH 1.91 mIU/L 0.40-4.50 CBC - 10/23/18 14:13 WHITE BLOOD CELL COUNT 14.2 Thousand/uL 3.8-10.8 RED BLOOD CELL COUNT 3.67 Million/uL 3.8 0-5.10 HEMOGLOBIN 11.4 g/dL 11.7-15.5 HEMATOCRIT 35.9 % 35.0-45.0 MCV 97.8 fL 80.0-100.0 MCH 31.1 pg 27.0-33.0 MCHC 31.8 g/dL 32.0-36.0 RDW 14.4 % 11.0-15.0 PLATELET COUNT 206 Thousand/uL 140-400 MPV 9.6 fL 7.5-12.5 ABSOLUTE NEUTROPHILS 88715 cells/uL 1500 -7800 ABSOLUTE LYMPHOCYTES 1803 cells/uL 850-3 900 ABSOLUTE MONOCYTES 866 cells/uL 200-950 ABSOLUTE EOSINOPHILS 0 cells/uL 15-500 ABSOLUTE BASOPHILS 57 cells/uL 0-200 NEUTROPHILS 80.8 % NRG LYMPHOCYTES 12.7 % NRG MONOCYTES 6.1 % NRG EOSINOPHILS 0.0 % NRG BASOPHILS 0.4 % NRG DIFFERENTIAL, MANUAL - 10/30/18 11:32 ABSOLUTE NEUTROPHILS 78427 cells/uL 1500 -7800 ABSOLUTE MONOCYTES 180 cells/uL 200-950 ABSOLUTE EOSINOPHILS 0 cells/uL 15-500 ABSOLUTE BASOPHILS 0 cells/uL 0-200 NEUTROPHILS 84.0 % NRG LYMPHOCYTES 6.0 % NRG MONOCYTES 1.0 % NRG EOSINOPHILS 0 % NRG BASOPHILS 0 % NRG ABSOLUTE BAND NEUTROPHILS 1620 cells/uL 0-750 ABSOLUTE LYMPHOCYTES 1080 cells/uL 850-3 900 BAND NEUTROPHILS 9.0 % NRG NOTE NRG Encounters ACCT No. Visit Date/Time Discharge Status Pt. Type Provider Facility Loc./Unit Complaint [id number] 06/16/2019 14:05:00 06/16/2019 23:59: 59 [facility] Outpatient BETHEL SILVA, [facility] [id number] 10/30/2018 11:00:00 Document Registration [id number] 10/23/2018 13:40:00 Document Registration [id number] 03/28/2018 09:40:00 Document Registration
== END 2019-07-01 13:35 | disposition short-term general hospital (02) ==
LOC: EDUNIT# 09:40 → ER 09:41
DX: A41.9 Sepsis, unspecified organism (principal); R65.20 Severe sepsis without septic shock; J96.01 Acute respiratory failure with hypoxia; J10.1 Influenza due to other identified influenza virus with other respiratory manifestations; E11.22 Type 2 diabetes mellitus with diabetic chronic kidney disease; N18.6 End stage renal disease; Z99.2 Dependence on renal dialysis; Z88.8 Allergy status to other drugs, medicaments and biological substances; Z87.891 Personal history of nicotine dependence
CPT/HCPCS: 36415; 36600; 71045; 80053; 82805; 83605; 83735; 84443; 84484; 85025; 85610; 85730; 87040; 87804; 93005; 93041; 94640; 94644; 96365; 96375